=== PATIENT | female | born 1970 | race American Indian/Alaskan Native ===

== ENCOUNTER 2016-09-02 01:09 | Emergency (ER) | payer MEDICARE ==
[2016-09-02 02:47] LABS: Basophils % (Auto) 0.7 % (0.0-1.8); Eosinophils % (Auto) 0.6 % (0.0-4.3); Hematocrit 40.1 % (30.3-42.9); Hemoglobin 13.3 gm/dl (10.1-14.3); Mean Corpuscular HGB Conc 33 % (30-34); Mean Corpuscular Hemoglobin 29 pg (28-32); Mean Corpuscular Volume 86 fl (79-97); Platelet Count 338 K/mm3 (140-440); Red Blood Count 4.64 M/mm3 (3.65-5.03); Red Cell Distribution Width 13.6 % (13.2-15.2); White Blood Count 8.1 K/mm3 (4.5-11.0)
--- NOTE | 2016-09-02 03:04 | Cat Scan Report ---
FINAL REPORT PROCEDURE: CT HEAD/BRAIN WO CON TECHNIQUE: Computerized tomography of the head was performed without contrast material. HISTORY: LEFT SIDED NUMBNESS AND TINGLING X 1 HR COMPARISON: No prior studies are available for comparison. FINDINGS: Skull and scalp: Normal. Paranasal sinuses: Normal. Ventricles and subarachnoid spaces: Normal. Cerebrum: No evidence of hemorrhage, acute infarction or mass . Cerebellum and brainstem: No evidence of hemorrhage, acute infarction or mass. Vasculature: Normal. Comments: None. IMPRESSION: Normal Examination
[2016-09-02 03:09] LABS: INR 0.94 (0.87-1.13)
[2016-09-02 03:10] LABS: Partial Thromboplastin Time 27.5 Sec. (24.2-36.6)
[2016-09-02 03:19] LABS: Anion Gap 17 mmol/L; BUN/Creatinine Ratio 17.27; Blood Urea Nitrogen 19 mg/dL (7-17); Calcium 9.3 mg/dL (8.4-10.2); Carbon Dioxide 23 mmol/L (22-30); Chloride 99.8 mmol/L (98-107); Glucose 256 mg/dL (65-100); Potassium 4.4 mmol/L (3.6-5.0); Sodium 135 mmol/L (137-145)
--- NOTE | 2016-09-02 07:04 | Emergency Department Report ---
ED Neuro Deficit HPI - General Chief Complaint: Neuro Symptoms/Deficit Stated Complaint: L SIDE NUMBNESS/TINGLING Time Seen by Provider: 09/02/16 06:59 Source: patient Mode of arrival: Ambulatory Limitations: No Limitations - History of Present Illness Initial Comments: Patient complains of tingling in her entire left side since yesterday. It is mildly persistent. She has no actual numbness. She denies any change in speech or gait. She's had no headache. She states that she's had tingling in her feet before. She has not been formally diagnosed with a diabetic neuropathy. She has no other complaints. She is resting comfortably at the time of my encounter. -: Gradual History of same: No Place: home Severity: mild Quality: tingling Improves With: none Worsens With: none On Anticoagulants: No Context: other Associated Symptoms: denies other symptoms Treatments Prior to Arrival: none - Related Data Home Medications: Home Medications Medication Instructions Recorded Confirmed Last Taken Insulin Aspart [NovoLOG 100 20 unit SQ AC 01/11/14 07/26/14 Unknown UNITS/ML VIAL] Insulin Glargine,Hum.rec.anlog 36 unit SQ QHS 01/11/14 07/26/14 Unknown [Lantus] Sitagliptin Phosphate [Januvia] 25 mg PO DAILY 01/11/14 07/26/14 Unknown metFORMIN [Glucophage] 500 mg PO BID 01/11/14 07/26/14 Unknown Lisinopril 10 mg PO DAILY 07/26/14 07/26/14 Unknown Previous Rx's Medication Instructions Recorded Last Taken Type Diclofenac Dr [Voltaren Dr] 75 mg PO Q12H #60 tablet 09/25/14 Unknown Rx traMADol [Ultram 50 MG tab] 50 mg PO Q6HR PRN #30 tablet 09/25/14 Unknown Rx Allergies/Adverse Reactions: Allergies Allergy/AdvReac Type Severity Reaction Status Date / Time No Known Allergies Allergy Verified 01/11/14 21:13 ED Review of Systems ROS: Stated complaint: L SIDE NUMBNESS/TINGLING Other details as noted in HPI Constitutional: denies: chills, fever Eyes: denies: eye pain, eye discharge, vision change ENT: denies: ear pain, throat pain Respiratory: denies: cough, shortness of breath, wheezing Cardiovascular: denies: chest pain, palpitations Endocrine: no symptoms reported Gastrointestinal: denies: abdominal pain, nausea, diarrhea Genitourinary: denies: urgency, dysuria, discharge Musculoskeletal: denies: back pain, joint swelling, arthralgia Skin: denies: rash, lesions Neurological: paresthesias. denies: headache, weakness, numbness, confusion, abnormal gait, vertigo Psychiatric: denies: anxiety, depression Hematological/Lymphatic: denies: easy bleeding, easy bruising ED Past Medical Hx - Past Medical History Previous Medical History?: Yes Hx Hypertension: Yes Hx Congestive Heart Failure: No Hx Diabetes: Yes Hx Seizures: (pt denies) Hx Psychiatric Treatment: Yes (no meds) Hx Asthma: No Hx COPD: No Additional medical history: high chol - Surgical History Past Surgical History?: Yes Additional Surgical History: HYSTERECTOMY, ovarian cysts removed in the - Social History Smoking Status: Never Smoker Substance Use Type: Alcohol - Medications Home Medications: Home Medications Medication Instructions Recorded Confirmed Last Taken Type Insulin Aspart [NovoLOG 100 20 unit SQ AC 01/11/14 07/26/14 Unknown History UNITS/ML VIAL] Insulin Glargine,Hum.rec.anlog 36 unit SQ QHS 01/11/14 07/26/14 Unknown History [Lantus] Sitagliptin Phosphate [Januvia] 25 mg PO DAILY 01/11/14 07/26/14 Unknown History metFORMIN [Glucophage] 500 mg PO BID 01/11/14 07/26/14 Unknown History Lisinopril 10 mg PO DAILY 07/26/14 07/26/[address] [Voltaren Dr] 75 mg PO Q12H #60 tablet 09/25/14 Unknown Rx traMADol [Ultram 50 MG tab] 50 mg PO Q6HR PRN #30 tablet 09/25/14 Unknown Rx ED Neuro Physical Exam - General Limitations: No Limitations General appearance: alert, in no apparent distress Suspected Stroke: No - Head Head exam: Present: atraumatic, normocephalic - Eye Eye exam: Present: normal appearance. Absent: scleral icterus - ENT ENT exam: Present: normal exam, mucous membranes moist - Neck Neck exam: Present: normal inspection - Respiratory Respiratory exam: Present: normal lung sounds bilaterally. Absent: respiratory distress - Cardiovascular Cardiovascular Exam: Present: regular rate, normal rhythm. Absent: systolic murmur, diastolic murmur, rubs, gallop - GI/Abdominal GI/Abdominal exam: Present: soft, normal bowel sounds. Absent: distended, tenderness, guarding, rebound, rigid, organomegaly, mass - Extremities Exam Extremities exam: Present: normal inspection - Back Exam Back exam: Present: normal inspection - Neurological Exam Neurological exam: Present: alert, oriented X3, CN II-XII intact. Absent: motor sensory deficit - NIHSS Assessment Interval: Baseline 1a. Level of Consciousness: alert 1b. LOC Questions: answers correctly 1c. LOC Commands: performs tasks correctly 2. Best Gaze: normal 3. Visual: no visual loss 4. Facial Palsy: normal symmetrical movement 5b. Motor Arm Right: no drift 5a. Motor Arm Left: no drift 6a. Motor Leg Left: no drift 6b. Motor Leg Right: no drift 7. Limb Ataxia: absent 8. Sensory: normal 9. Best Language: no aphasia 10. Dysarthria: normal 11. Extinction/Inattention: no abnormality Total Score: 0 Stroke Severity: No Stroke Symptoms - Psychiatric Psychiatric exam: Present: normal affect, normal mood - Skin Skin exam: Present: warm, dry, intact, normal color. Absent: rash ED Course Vital Signs 09/02/16 09/02/16 09/02/16 01:56 06:11 06:20 Temperature 98.2 F Pulse Rate 94 H 94 H 97 H Respiratory 16 17 24 Rate Blood Pressure 131/82 126/86 Blood Pressure 134/85 [Right] O2 Sat by Pulse 100 97 96 Oximetry 09/02/16 09/02/16 06:30 06:40 Temperature Pulse Rate 87 92 H Respiratory 18 16 Rate Blood Pressure 119/77 119/77 Blood Pressure [Right] O2 Sat by Pulse 96 98 Oximetry - Lab Data Result diagrams: 09/02/16 02:17 09/02/16 02:17 Lab Results 09/02/16 09/02/16 09/02/16 Range/Units 02:17 02:17 02:17 WBC 8.1 (4.5-11.0) K/mm3 RBC 4.64 (3.65-5.03) M/mm3 Hgb 13.3 (10.1-14.3) gm/dl Hct 40.1 (30.3-42.9) % MCV 86 (79-97) fl MCH 29 (28-32) pg MCHC 33 (30-34) % RDW 13.6 (13.2-15.2) % Plt Count 338 (140-440) K/mm3 Lymph % (Auto) 49.8 H (13.4-35.0) % Sac % (Auto) 9.1 H (0.0-7.3) % Eos % (Auto) 0.6 (0.0-4.3) % Baso % (Auto) 0.7 (0.0-1.8) % Lymph # 4.0 (1.2-5.4) K/mm3 Sac # 0.7 (0.0-0.8) K/mm3 Eos # 0.1 (0.0-0.4) K/mm3 Baso # 0.1 (0.0-0.1) K/mm3 Seg Neutrophils % 39.8 L (40.0-70.0) % Seg Neutrophils # 3.2 (1.8-7.7) K/mm3 PT 12.5 (12.2-14.9) Sec. INR 0.94 (0.87-1.13) APTT 27.5 (24.2-36.6) Sec. Thrombin Time (15.1-19.6) Sec. Sodium 135 L (137-145) mmol/L Potassium 4.4 (3.6-5.0) mmol/L Chloride 99.8 (98-107) mmol/L Carbon Dioxide 23 (22-30) mmol/L Anion Gap 17 mmol/L BUN 19 H (7-17) mg/dL Creatinine 1.1 (0.7-1.2) mg/dL Estimated GFR > 60 ml/min BUN/Creatinine Ratio 17.27 % Glucose 256 H (65-100) mg/dL Calcium 9.3 (8.4-10.2) mg/dL Troponin T < 0.010 (0.00-0.029) ng/mL 09/02/16 Range/Units 02:17 WBC (4.5-11.0) K/mm3 RBC (3.65-5.03) M/mm3 Hgb (10.1-14.3) gm/dl Hct (30.3-42.9) % MCV (79-97) fl MCH (28-32) pg MCHC (30-34) % RDW (13.2-15.2) % Plt Count (140-440) K/mm3 Lymph % (Auto) (13.4-35.0) % Sac % (Auto) (0.0-7.3) % Eos % (Auto) (0.0-4.3) % Baso % (Auto) (0.0-1.8) % Lymph # (1.2-5.4) K/mm3 Sac # (0.0-0.8) K/mm3 Eos # (0.0-0.4) K/mm3 Baso # (0.0-0.1) K/mm3 Seg Neutrophils % (40.0-70.0) % Seg Neutrophils # (1.8-7.7) K/mm3 PT (12.2-14.9) Sec. INR (0.87-1.13) APTT (24.2-36.6) Sec. Thrombin Time 19.2 (15.1-19.6) Sec. Sodium (137-145) mmol/L Potassium (3.6-5.0) mmol/L Chloride (98-107) mmol/L Carbon Dioxide (22-30) mmol/L Anion Gap mmol/L BUN (7-17) mg/dL Creatinine (0.7-1.2) mg/dL Estimated GFR ml/min BUN/Creatinine Ratio % Glucose (65-100) mg/dL Calcium (8.4-10.2) mg/dL Troponin T (0.00-0.029) ng/mL - EKG Data -: EKG Interpreted by Me EKG shows normal: sinus rhythm, axis, intervals, QRS complexes, ST-T waves Rate: normal Interpretation: normal EKG - Radiology Data Radiology results: report reviewed interpreted by me: CT head is normal Critical care attestation.: If time is entered above; I have spent that time in minutes in the direct care of this critically ill patient, excluding procedure time. ED Disposition Clinical Impression: Paresthesias Diabetes mellitus Qualifiers: Diabetes mellitus type: type 2 Diabetes mellitus complication status: without complication Diabetes mellitus mcfp insulin use: with mcfp use Qualified Code(s): E11.9 - Type 2 diabetes mellitus without complications; Z79.4 - termite control servicer (current) use of insulin Disposition: DISCHARGED TO HOME OR SELFCARE Is pt being admited?: No Does the pt Need Aspirin: Yes Condition: Stable Instructions: Diabetes Mellitus Type 2 in Adults (ED) Additional Instructions: I would recommend a baby aspirin a day. In addition, see referral to neurologist. Return any progression of your symptoms actual numbness or weakness or any acute change. Referrals: DARRYN CARROLL MD [Primary Care Provider] - 3-5 Days SHARA PETER MD [Staff Physician] - 2-3 Days Time of Disposition: 07:38
[2016-09-02] MEDS ORDERED: BABY ASPIRIN PO ONE (07:40)
[2016-09-02 09:12] VITALS: BP 119/89
== END 2016-09-02 07:39 | disposition home or self-care (01) ==
LOC: ED 01:09
DX: R20.9 Unspecified disturbances of skin sensation (principal); E11.9 Type 2 diabetes mellitus without complications; Z79.4 Long term (current) use of insulin; I10 Essential (primary) hypertension; E78.00 Pure hypercholesterolemia, unspecified
CPT/HCPCS: 36415; 70450; 80048; 84484; 85025; 85610; 85670; 85730; 93005; 93010

== ENCOUNTER 2016-09-14 10:09 | Outpatient (CLI) | payer MEDICARE ==
--- NOTE | 2016-09-15 21:00 | Magnetic Resonance Report ---
MR scan of the cranium was performed with and without contrast. Pulse sequences included: 1. T1 weighted sagittal and axial images without contrast and T1 axial images with contrast and sagittal and coronal reformatted images with contrast 2. T2 weighted axial and coronal images 3. FLAIR axial images 4. Diffusion-weighted axial images 5. Apparent diffusion coefficient images Views of the posterior fossa showed a normal craniocervical junction. Cerebellar pontine angles were normal with normal seventh-eighth nerve complexes. Brainstem and cerebellum were normal. The ventricular system showed no dilatation or distortion. Images of the hemispheres showed occasional small areas of increased signal in the cortical white matter. There were no Cano's fingers. These lesions were punctate and not ovoid. Sinuses, pituitary, flow voids in the [place], orbits, and basal ganglia were normal. There are no abnormal areas of enhancement with contrast. 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
== END 2016-09-14 10:10 | disposition home or self-care (01) ==
LOC: SPVIMAG 10:09
PROVIDERS: ATTEND Specialist
DX: R20.2 Paresthesia of skin (principal)
CPT/HCPCS: 70553; 82962; A9577

== ENCOUNTER 2016-10-04 06:02 | Day surgery (SDC) | payer MEDICARE ==
[2016-10-04 07:54] LABS: INR 0.92 (0.87-1.13)
[2016-10-04 07:55] LABS: Partial Thromboplastin Time 25.6 Sec. (24.2-36.6)
--- NOTE | 2016-10-04 09:21 | Fluoroscopy Report ---
FLUOROSCOPY LUMBAR PUNCTURE History: Paresthesia of skin. Findings: Informed consent was obtained. Sterile technique was utilized. 1% lidocaine for skin anesthesia. Using fluoroscopy guidance, lumbar puncture was performed at the L3-4 level. There is spontaneous return of clear CSF. 4 tubes of CSF were collected for laboratory analysis. No complications. Impression: Successful fluoroscopy guided lumbar puncture.
[2016-10-04] MEDS ORDERED: NORCO 5/325 PO ONE (10:00)
[2016-10-04 10:31] LABS: Appearance,CSF Clear; White Blood Cell,CSF 0 /mm3 (1-10)
[2016-10-04 10:32] VITALS: BP 126/73
[2016-10-04 10:44] LABS: Glucose,CSF 189 mg/dL
[2016-10-04 11:41] LABS: CSF Diff Status Complete
== END 2016-10-04 10:35 | disposition home or self-care (01) ==
LOC: OPU 06:02 → EDSTATUS 06:30 → OPU 10:35
PROVIDERS: ATTEND Specialist
DX: R20.2 Paresthesia of skin (principal); Z79.01 Long term (current) use of anticoagulants
CPT/HCPCS: 36415; 62270; 77003; 82947; 82962; 83873; 83916; 84160; 85610; 85730; 86403; 86592; 88112; 89051

== ENCOUNTER 2017-08-22 21:46 | Emergency (ER) | payer MEDICARE ==
[2017-08-22 21:55] VITALS: BP 140/93
--- NOTE | 2017-08-23 01:54 | Emergency Department Report ---
- General Chief complaint: Skin/Abscess/Foreign Body Stated complaint: KNOT ON HER BACK Time Seen by Provider: 08/23/17 01:07 Source: patient Mode of arrival: Ambulatory Limitations: No Limitations - History of Present Illness Initial comments: This is a 46 y.o. female that presents with a painful mole to left mid back. Patient reports mole has been there for about 1 year. She never had any issues with it until 3 days ago. The mole is darker, larger than usual, and painful to wear bra or pressure against back. Denies erythema, discharge, fever, or numbness or tingling. MD complaint: lesion (mole or mass on left mid back) -: year(s) (1) Tetanus Up to Date: unsure Location: back (left mid back) Severity scale (0 -10): 8 Quality: aching Consistency: intermittent Improves with: immobilization Worsens with: palpation Context: none Associated symptoms: denies other symptoms Treatments Prior to Arrival: none - Related Data Home Medications Medication Instructions Recorded Confirmed Last Taken Insulin Aspart [NovoLOG 100 20 unit SQ AC 01/11/14 10/04/16 10/03/16 UNITS/ML VIAL] 20 units Insulin Glargine,Hum.rec.anlog 36 unit SQ QHS 01/11/14 10/04/16 10/03/16 [Lantus] 36 units Sitagliptin Phosphate [Januvia] 25 mg PO DAILY 01/11/14 10/04/16 10/03/16 25mg metFORMIN [Glucophage] 500 mg PO BID 01/11/14 10/04/16 10/03/16 500mg Losartan [Cozaar] 50 mg PO QDAY 10/04/16 10/04/16 10/03/16 50mg Rosuvastatin Calcium [Crestor] 10 mg PO DAILY 10/04/16 10/04/16 10/03/16 10mg Allergies Allergy/AdvReac Type Severity Reaction Status Date / Time shellfish derived Allergy Rash Verified 08/22/17 21:52 Abscess Boil HPI - HPI Chief Complaint: Skin/Abscess/Foreign Body Stated Complaint: KNOT ON HER BACK Time Seen by Provider: 08/23/17 01:07 Home Medications: Home Medications Medication Instructions Recorded Confirmed Last Taken Insulin Aspart [NovoLOG 100 20 unit SQ AC 01/11/14 10/04/16 10/03/16 UNITS/ML VIAL] 20 units Insulin Glargine,Hum.rec.anlog 36 unit SQ QHS 01/11/14 10/04/16 10/03/16 [Lantus] 36 units Sitagliptin Phosphate [Januvia] 25 mg PO DAILY 01/11/14 10/04/16 10/03/16 25mg metFORMIN [Glucophage] 500 mg PO BID 01/11/14 10/04/16 10/03/16 500mg Losartan [Cozaar] 50 mg PO QDAY 10/04/16 10/04/16 10/03/16 50mg Rosuvastatin Calcium [Crestor] 10 mg PO DAILY 10/04/16 10/04/16 10/03/16 10mg Allergies/Adverse Reactions: Allergies Allergy/AdvReac Type Severity Reaction Status Date / Time shellfish derived Allergy Rash Verified 08/22/17 21:52 ED Review of Systems ROS: Stated complaint: KNOT ON HER BACK Other details as noted in HPI Constitutional: denies: chills, fever Respiratory: denies: cough, shortness of breath, wheezing Cardiovascular: denies: chest pain, palpitations Gastrointestinal: denies: abdominal pain, nausea, diarrhea Musculoskeletal: denies: back pain, joint swelling, arthralgia Skin: lesions (painful mole on left mid back, larger than usual, and darker). denies: rash, change in hair/nails Neurological: denies: headache, weakness, numbness, paresthesias ED Past Medical Hx - Past Medical History Hx Hypertension: Yes Hx Congestive Heart Failure: No Hx Diabetes: Yes Hx Seizures: (pt denies) Hx Psychiatric Treatment: Yes (no meds) Hx Asthma: No Hx COPD: No Additional medical history: high chol - Surgical History Additional Surgical History: HYSTERECTOMY, ovarian cysts removed in the - Social History Smoking Status: Never Smoker Substance Use Type: None - Medications Home Medications: Home Medications Medication Instructions Recorded Confirmed Last Taken Type Insulin Aspart [NovoLOG 100 20 unit SQ AC 01/11/14 10/04/16 10/03/16 History UNITS/ML VIAL] 20 units Insulin Glargine,Hum.rec.anlog 36 unit SQ QHS 01/11/14 10/04/16 10/03/16 History [Lantus] 36 units Sitagliptin Phosphate [Januvia] 25 mg PO DAILY 01/11/14 10/04/16 10/03/16 History 25mg metFORMIN [Glucophage] 500 mg PO BID 01/11/14 10/04/16 10/03/16 History 500mg Losartan [Cozaar] 50 mg PO QDAY 10/04/16 10/04/16 10/03/16 History 50mg Rosuvastatin Calcium [Crestor] 10 mg PO DAILY 10/04/16 10/04/16 10/03/16 History 10mg ED Physical Exam - General Limitations: No Limitations General appearance: alert, in no apparent distress - Respiratory Respiratory exam: Present: normal lung sounds bilaterally. Absent: respiratory distress, wheezes, rales, rhonchi, stridor - Cardiovascular Cardiovascular Exam: Present: regular rate, normal rhythm, normal heart sounds. Absent: systolic murmur, diastolic murmur, rubs, gallop - GI/Abdominal GI/Abdominal exam: Present: soft, normal bowel sounds - Neurological Exam Neurological exam: Present: alert, oriented X3, normal gait - Psychiatric Psychiatric exam: Present: normal affect, normal mood - Skin Skin exam: Present: warm, dry, intact, normal color, other (left medial, mid back, 5 mm nevi, dark brown, regular boarders, tender on palpation). Absent: rash ED Course Vital Signs 08/22/17 21:53 Temperature 98.7 F Pulse Rate 100 H Respiratory 20 Rate Blood Pressure 140/93 O2 Sat by Pulse 99 Oximetry ED Medical Decision Making - Medical Decision Making 46 y.o. female that presents with painful mole to left mid back for 3 days. The mole has been there for 1 year, it is larger and darker than usual. Patient examined by me. Vitals stable. Physical findings of 6 mm nevi, dark brown, regular boarder, tender to palpation. Patient informed to f/u with dermatology for further evaluation or biopsy. Patient agreed with plan. Referred to [facility]. Discharged home. Follow up with [facility] in 48 -72 hours. Critical care attestation.: If time is entered above; I have spent that time in minutes in the direct care of this critically ill patient, excluding procedure time. ED Disposition Clinical Impression: Atypical nevi, Mid back pain on left side Disposition: - TO HOME OR SELFCARE Is pt being admited?: No Does the pt Need Aspirin: No Condition: Stable Instructions: Back Pain (ED) Additional Instructions: Follow up with dermatology for follow up of mole in 24-72 hours. [facility]erral to [facility] Referrals: [facility] [Provider Group] - 3-5 Days [facility] - 3-5 Days Time of Disposition: 02:29 Print Language: AMERICAN
== END 2017-08-23 02:31 | disposition home or self-care (01) ==
LOC: ED 21:46
DX: R51 Headache (principal); Z53.21 Procedure and treatment not carried out due to patient leaving prior to being seen by health care provider

== ENCOUNTER 2017-12-25 20:36 | Emergency (ER) | payer MEDICARE ==
[2017-12-25 20:57] VITALS: BP 139/90
[2017-12-26] MEDS ORDERED: MOTRIN PO ONE (01:01)
--- NOTE | 2017-12-26 01:17 | Emergency Department Report ---
- General Chief complaint: Skin/Abscess/Foreign Body Stated complaint: INSECT BITE Time Seen by Provider: 12/26/17 00:17 Source: patient Mode of arrival: Ambulatory Limitations: No Limitations - History of Present Illness Initial comments: 47-year-old [place] female reports that insect bite yesterday to her left big toe. Patient poor she has some swelling to the area. She denies any discharge. States that she feels pins radiating to her lower lower extremity. Feels like wearing a tight socks. Patient reports she took Benadryl yesterday. She does have a past medical history of diabetes and high cholesterol she had checked her glucose in triage was 1:30. -: days(s) (1) Tetanus Up to Date: yes Location: L foot (right toe) Severity: severe Severity scale (0 -10): 10 Quality: burning Consistency: constant Associated symptoms: denies other symptoms Treatments Prior to Arrival: Benadryl (1 dose) - Related Data Home Medications Medication Instructions Recorded Confirmed Last Taken Insulin Aspart [NovoLOG 100 20 unit SQ AC 01/11/14 10/04/16 10/03/16 UNITS/ML VIAL] 20 units Insulin Glargine,Hum.rec.anlog 36 unit SQ QHS 01/11/14 10/04/16 10/03/16 [Lantus] 36 units Sitagliptin Phosphate [Januvia] 25 mg PO DAILY 01/11/14 10/04/16 10/03/16 25mg metFORMIN [Glucophage] 500 mg PO BID 01/11/14 10/04/16 10/03/16 500mg Losartan [Cozaar] 50 mg PO QDAY 10/04/16 10/04/16 10/03/16 50mg Rosuvastatin Calcium [Crestor] 10 mg PO DAILY 10/04/16 10/04/16 10/03/16 10mg Allergies Allergy/AdvReac Type Severity Reaction Status Date / Time shellfish derived Allergy Rash Verified 08/22/17 21:52 Abscess Boil HPI - HPI Chief Complaint: Skin/Abscess/Foreign Body Stated Complaint: INSECT BITE Time Seen by Provider: 12/26/17 00:17 Home Medications: Home Medications Medication Instructions Recorded Confirmed Last Taken Insulin Aspart [NovoLOG 100 20 unit SQ AC 01/11/14 10/04/16 10/03/16 UNITS/ML VIAL] 20 units Insulin Glargine,Hum.rec.anlog 36 unit SQ QHS 01/11/14 10/04/16 10/03/16 [Lantus] 36 units Sitagliptin Phosphate [Januvia] 25 mg PO DAILY 01/11/14 10/04/16 10/03/16 25mg metFORMIN [Glucophage] 500 mg PO BID 01/11/14 10/04/16 10/03/16 500mg Losartan [Cozaar] 50 mg PO QDAY 10/04/16 10/04/16 10/03/16 50mg Rosuvastatin Calcium [Crestor] 10 mg PO DAILY 10/04/16 10/04/16 10/03/16 10mg Allergies/Adverse Reactions: Allergies Allergy/AdvReac Type Severity Reaction Status Date / Time shellfish derived Allergy Rash Verified 08/22/17 21:52 ED Review of Systems ROS: Stated complaint: INSECT BITE Other details as noted in HPI Skin: lesions ED Past Medical Hx - Past Medical History Previous Medical History?: Yes Hx Hypertension: Yes Hx Congestive Heart Failure: No Hx Diabetes: Yes Hx Seizures: (pt denies) Hx Psychiatric Treatment: Yes (no meds) Hx Asthma: No Hx COPD: No Additional medical history: high chol - Surgical History Past Surgical History?: Yes Additional Surgical History: HYSTERECTOMY, ovarian cysts removed in the s. cyst removal to back - Social History Smoking Status: Never Smoker Substance Use Type: Alcohol - Medications Home Medications: Home Medications Medication Instructions Recorded Confirmed Last Taken Type Insulin Aspart [NovoLOG 100 20 unit SQ AC 01/11/14 10/04/16 10/03/16 History UNITS/ML VIAL] 20 units Insulin Glargine,Hum.rec.anlog 36 unit SQ QHS 01/11/14 10/04/16 10/03/16 History [Lantus] 36 units Sitagliptin Phosphate [Januvia] 25 mg PO DAILY 01/11/14 10/04/16 10/03/16 History 25mg metFORMIN [Glucophage] 500 mg PO BID 01/11/14 10/04/16 10/03/16 History 500mg Losartan [Cozaar] 50 mg PO QDAY 10/04/16 10/04/16 10/03/16 History 50mg Rosuvastatin Calcium [Crestor] 10 mg PO DAILY 10/04/16 10/04/16 10/03/16 History 10mg ED Physical Exam - General Limitations: No Limitations General appearance: alert, in no apparent distress - ENT ENT exam: Present: mucous membranes moist - Neurological Exam Neurological exam: Present: alert, oriented X3, normal gait - Psychiatric Psychiatric exam: Present: normal affect, normal mood - Expanded Skin Exam Expanded Distribution of rash: LLE (left great toe proximal medical tarsal) Description of rash: Present: size (1 mm), tenderness, swelling (mild) ED Course Vital Signs 12/25/17 20:48 Temperature 98.5 F Pulse Rate 93 H Respiratory 18 Rate Blood Pressure 139/90 O2 Sat by Pulse 100 Oximetry ED Medical Decision Making - Medical Decision Making Patient has been evaluated by this provider fast track. Patient was given ibuprofen 600 mg for pain management. Discussed the patient at the swelling has improved with the Benadryl that she is taken at home per her report. Discussed the patient to take pain medication as needed. If her symptoms persist or gets worse she should follow up with her primary care provider. Critical care attestation.: If time is entered above; I have spent that time in minutes in the direct care of this critically ill patient, excluding procedure time. ED Disposition Clinical Impression: Rash and nonspecific skin eruption Disposition: DC-01 TO HOME OR SELFCARE Is pt being admited?: No Does the pt Need Aspirin: No Condition: Stable Instructions: Acute Rash (ED) Additional Instructions: Please take pain medication and Benadryl as needed for swelling and pain. If her symptoms persist or gets worse please follow up with her primary care provider. Referrals: [facility]IMARY [facility]ARE [Primary Care Provider] - 3-5 Days [facility] [Provider Group] - 3-5 Days Forms: Work/School Release Form(ED), Accompanied Note
== END 2017-12-26 01:45 | disposition home or self-care (01) ==
LOC: ED 20:36
DX: R21 Rash and other nonspecific skin eruption (principal); I10 Essential (primary) hypertension; E11.9 Type 2 diabetes mellitus without complications; E78.00 Pure hypercholesterolemia, unspecified; Z90.710 Acquired absence of both cervix and uterus; Z79.4 Long term (current) use of insulin; Z91.013 Allergy to seafood
CPT/HCPCS: 82962; 99283

== ENCOUNTER 2018-07-17 08:29 | Emergency (ER) | payer OTHER, MEDICARE ==
[2018-07-17] MEDS ORDERED: IBUPROFEN PO ONE (09:03)
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
[2018-07-17 11:15] VITALS: BP 144/98
== END 2018-07-17 11:14 | disposition home or self-care (01) ==
LOC: ED 08:29
DX: M54.2 Cervicalgia (principal); M79.601 Pain in right arm; M79.604 Pain in right leg; I10 Essential (primary) hypertension; E11.9 Type 2 diabetes mellitus without complications; E78.00 Pure hypercholesterolemia, unspecified; Z90.710 Acquired absence of both cervix and uterus; Z79.899 Other long term (current) drug therapy; Z91.013 Allergy to seafood; V89.2XXA Person injured in unspecified motor-vehicle accident, traffic, initial encounter; Y93.89 Activity, other specified; Y99.8 Other external cause status; Y92.410 Unspecified street and highway as the place of occurrence of the external cause
CPT/HCPCS: 71046; 72040; 72170; 99283

== ENCOUNTER 2018-11-26 12:47 | Emergency (ER) | payer MEDICARE, OTHER ==
--- NOTE | 2018-11-26 13:08 | Emergency Department Report ---
Blank Doc - Documentation Documentation: This is a 48-year-old female that presents with dysuria and urinary frequency with urgency. This initial assessment/diagnostic orders/clinical plan/treatment(s) is/are subject to change based on patient's health status, clinical progression and re- assessment by fellow clinical providers in the ED. Further treatment and workup at subsequent clinical providers discretion. Patient/guardians urged not to elope from the ED as their condition may be serious if not clinically assessed and managed. Initial orders include: 1- Patient sent to [facility] for further evaluation and treatment 2- UA
--- NOTE | 2018-11-26 14:57 | Emergency Department Report ---
ED Dysuria HPI - HPI Chief Complaint: Urogenital-Female Stated Complaint: UTI/STOMACH PAIN Time Seen by Provider: 11/26/18 13:07 Duration: 3 Days Location of Discomfort: Suprapubic Severity: Mild Symptoms: Dysuria: Yes, Frequency: Yes, Suprapubic Pain: No, Flank Pain: No, Fever: No, Hematuria: No, Abdominal Pain: No, Previous UTI's: Yes Other History: Patient is a 48-year-old female who comes to the ER today complaining of burning with urination. She states that her urine is dark and has a foul spell to it. Patient is diabetic and has a history of COPD. She is compliant with her medications. ED Review of Systems ROS: Stated complaint: UTI/STOMACH PAIN Other details as noted in HPI Comment: All other systems reviewed and negative ED Past Medical Hx - Past Medical History Previous Medical History?: Yes Hx Hypertension: Yes Hx Congestive Heart Failure: No Hx Diabetes: Yes Hx Seizures: (pt denies) Hx Psychiatric Treatment: Yes (no meds) Hx Asthma: No Hx COPD: No Additional medical history: high chol - Surgical History Past Surgical History?: Yes Additional Surgical History: HYSTERECTOMY, ovarian cysts removed in the . cyst removal to back - Family History Family history: no significant - Social History Smoking Status: Never Smoker Substance Use Type: None - Medications Home Medications: Home Medications Medication Instructions Recorded Confirmed Last Taken Type Insulin Aspart [NovoLOG 100 20 unit SQ AC 01/11/14 10/04/16 10/03/16 History UNITS/ML VIAL] 20 units Insulin Glargine,Hum.rec.anlog 36 unit SQ QHS 01/11/14 10/04/16 10/03/16 History [Lantus] 36 units Sitagliptin Phosphate [Januvia] 25 mg PO DAILY 01/11/14 10/04/16 10/03/16 History 25mg metFORMIN [Glucophage] 500 mg PO BID 01/11/14 10/04/16 10/03/16 History 500mg Losartan [Cozaar] 50 mg PO QDAY 10/04/16 10/04/16 10/03/16 History 50mg Rosuvastatin Calcium [Crestor] 10 mg PO DAILY 10/04/16 10/04/16 10/03/16 History 10mg Ciprofloxacin HCl [Ciprofloxacin 500 mg PO Q12HR #14 tab 11/26/18 Unknown Rx TAB] Dysuria Exam - Exam General: Vital signs noted. No distress. Alert and acting appropriately. Exam: Yes Moist Mucous Membranes, No CVA Tenderness, No Abdominal Tenderness, No Rigidity or Guarding ED Medical Decision Making - Medical Decision Making Labs 11/26/18 14:50 Urine Color Yellow Urine Turbidity Cloudy Urine pH 5.0 Ur Specific [place] 1.018 Urine Protein 100 mg/dl Urine Glucose (UA) >=500 Urine Ketones Neg Urine Blood Mod Urine Nitrite Pos Ur Reducing Substances Not Reportable Urine Bilirubin Neg Urine Ictotest Not Reportable Urine Urobilinogen < 2.0 Ur Leukocyte Esterase Lg Urine WBC (Auto) > 182.0 H Urine RBC (Auto) 42.0 U Epithel Cells (Auto) 2.0 Urine Bacteria (Auto) 2+ Urine WBC Clumps 2+ Urine Mucus Few Urine HCG, Qual Negative Pt has received normal saline IV as well as Rocephin IV. She's been medicated for pain. Patient is ambulatory, afebrile and nontoxic in appearance. She has no CVA tenderness. Patient is going to be discharged home with outpatient management. She has been instructed to follow-up with her primary care physician to ensure that she responds adequately to the antibiotics. Patient has also been instructed to monitor her blood sugar for infection may cause her blood sugars to be abnormally elevated. - Differential Diagnosis RO UTI/PYLO Critical care attestation.: If time is entered above; I have spent that time in minutes in the direct care of this critically ill patient, excluding procedure time. ED Disposition Clinical Impression: Diabetes type 1, uncontrolled, UTI (urinary tract infection) Disposition: TO HOME OR SELFCARE Is pt being admited?: No Does the pt Need Aspirin: No Condition: Stable Instructions: Urinary Tract Infection in Women (ED) Additional Instructions: DIET TOLERATED MEDS ORDERED TODAY IN ER FOLLOW INSTRUCTIONS ON THE BOTTLE FOLLOW UP PCP WITHIN 48 HOURS TO ENSURE YOU ARE GETTING BETTER ACTIVITY TOLERATED MOTRIN OR TYLENOL FOR PAIN OR FEVER RETURN TO THE ER FOR WORSENING SYMPTOMS NOT RELIEVED BY YOUR MEDICATIONS. Prescriptions: Ciprofloxacin HCl [Ciprofloxacin TAB] 500 mg PO Q12HR #14 tab Referrals: [facility] [Outside] - 3-5 Days Time of Disposition: 15:31
[2018-11-26 15:11] LABS: Bacteria,Urine 2+ /HPF (Negative); Bilirubin,Urine NEG (Negative); Blood,Urine MOD (Negative); Color,Urine Yellow (Yellow); HCG Qualitative,Urine Negative (Negative); Mucus,Urine FEW /HPF; Urobilinogen,Urine < 2.0 mg/dL (<2.0)
[2018-11-26 15:13] LABS: WBC,Urine > 182.0 /HPF (0.0-6.0)
[2018-11-26] MEDS ORDERED: XYLOCAINE 1% MPF 5 mL INFILTRATI ONE (15:25)
[2018-11-26] MEDS ORDERED: ROCEPHIN IM ONE (15:25)
[2018-11-26] MEDS ORDERED: NACL 0.9% 1000 ML 1,000 ML IV ONE (15:29)
[2018-11-26] MEDS ORDERED: ROCEPHIN/NS 1 GM/50 ML 1 GM/50 ML BAG IV ONE (15:29)
[2018-11-26] MEDS ORDERED: NORCO 7.5/325 PO ONE (16:01)
== END 2018-11-26 17:36 | disposition home or self-care (01) ==
LOC: ED 12:47
DX: E10.8 Type 1 diabetes mellitus with unspecified complications (principal); N39.0 Urinary tract infection, site not specified; I10 Essential (primary) hypertension; E78.00 Pure hypercholesterolemia, unspecified; Z90.710 Acquired absence of both cervix and uterus; Z79.899 Other long term (current) drug therapy; Z91.013 Allergy to seafood
CPT/HCPCS: 81001; 81025; 96365; 99283; J0696; J7030

== ENCOUNTER 2019-05-03 04:53 | Emergency (ER) | payer SELFPAY ==
[2019-05-03 05:00] VITALS: BP 150/103
[2019-05-03] MEDS ORDERED: methylPREDNISolone Sod Succinate 125 MG/2 ML INJ IM ONE (05:14)
[2019-05-03] MEDS ORDERED: IPRATROPIUM/ALBUTEROL SULFATE 3 ML AMPUL.NEB IH ONE (05:14)
--- NOTE | 2019-05-03 05:40 | XRay Report ---
CHEST 1 VIEW INDICATION / CLINICAL INFORMATION: COugh. COMPARISON: 07/17/2018 FINDINGS: SUPPORT DEVICES: None. HEART / MEDIASTINUM: No significant abnormality. LUNGS / PLEURA: No significant pulmonary or pleural abnormality. No pneumothorax. ADDITIONAL FINDINGS: No significant additional findings. IMPRESSION: 1. No acute findings. No interval change. Signer Name: Rosetta Montoya MD Signed: 05/03/2019 5:35 AM Workstation Name: [id number]
[2019-05-03] MEDS ORDERED: ONDANSETRON 4 MG ODT TAB PO ONE (05:48)
--- NOTE | 2019-05-03 05:48 | Emergency Department Report ---
- General Chief Complaint: Upper Respiratory Infection Stated Complaint: COLD SYM Source: patient Mode of arrival: Ambulatory Limitations: No Limitations - History of Present Illness Initial Comments: The patient is a 48-year-old -[place]ym[place] female with a history of hypertension and hfj-mmrrszt-ectpzbwja diabetes who presents to the ED recombinant of acute onset persistent nasal and sinus congestion, frontal sinus pressure, dry cough and intermittent wheezing for the last 2 weeks worse in the last 4 days despite taking invn-rvc-ajnnedi cough suppressants and decongestants. Patient denies fever, chills, nausea, vomiting, chest pain, sore throat, abdominal pain, shortness of breath, dizziness, dysuria, urinary frequency and urgency of back pain. MD Complaint: cough, rhinorrhea, nasal congestion, sinus pain -: Sudden, week(s) (2) Severity: severe Severity scale (0 -10): 7 Quality: sharp, aching Consistency: intermittent Improves With: nothing Worsens With: nothing Context: sick contacts Associated Symptoms: denies other symptoms, myalgias, headache, rhinorrhea, nasal congestion, sore throat, cough. denies: fever, chills, diaphoresis, chest pain, shortness of breath, abdominal pain, nausea, vomiting, diarrhea, dysuria, rash, confusion, right sweats, weight loss, epistaxis, hoarseness Treatments Prior to Arrival: "cold medicine" - Related Data Home Medications Medication Instructions Recorded Confirmed Last Taken Insulin Aspart (Nf) [NovoLOG 100 20 unit SQ AC 01/11/14 10/04/16 10/03/16 UNITS/ML VIAL] 20 units Insulin Glargine,Hum.rec.anlog 36 unit SQ QHS 01/11/14 10/04/16 10/03/16 [Lantus] 36 units Sitagliptin Phosphate [Januvia] 25 mg PO DAILY 01/11/14 10/04/16 10/03/16 25 mg metFORMIN [Glucophage] 500 mg PO BID 01/11/14 10/04/16 10/03/16 500 mg Losartan [Cozaar] 50 mg PO QDAY 10/04/16 10/04/16 10/03/16 50 mg Rosuvastatin Calcium [Crestor] 10 mg PO DAILY 10/04/16 10/04/16 10/03/16 10 mg Previous Rx's Medication Instructions Recorded Last Taken Type Ciprofloxacin HCl [Ciprofloxacin 500 mg PO Q12HR #14 tab 11/26/18 Unknown Rx TAB] Amoxicillin/Potassium Clav 1 each PO Q12H #20 tablet 05/03/19 Unknown Rx [Augmentin 875-125 Tablet] Benzonatate [Tessalon Perles] 100 mg PO Q8HR #30 capsule 05/03/19 Unknown Rx Cetirizine HCl [Zyrtec 10mg tab] 10 mg PO DAILY #30 tablet 05/03/19 Unknown Rx Ibuprofen [Motrin] 400 mg PO Q8H PRN #20 tablet 05/03/19 Unknown Rx Ondansetron [Zofran Odt] 4 mg PO Q6HR PRN #15 tab.rapdis 05/03/19 Unknown Rx methylPREDNISolone [Medrol 4MG 4 mg PO DAILY #21 tab.ds.pk 05/03/19 Unknown Rx DOSEPAK (21 tabs)] Allergies Allergy/AdvReac Type Severity Reaction Status Date / Time shellfish derived Allergy Rash Verified 07/17/18 08:33 ED Review of Systems ROS: Stated complaint: COLD SYM Other details as noted in HPI Constitutional: denies: chills, fever Eyes: denies: eye pain, eye discharge, vision change ENT: congestion, other (frontal headache). denies: ear pain, throat pain Respiratory: cough, wheezing. denies: shortness of breath Cardiovascular: denies: chest pain, palpitations Endocrine: no symptoms reported Gastrointestinal: denies: abdominal pain, nausea, diarrhea Genitourinary: denies: urgency, dysuria, discharge Musculoskeletal: denies: back pain, joint swelling, arthralgia Skin: denies: rash, lesions Neurological: headache. denies: weakness, paresthesias Psychiatric: denies: anxiety, depression Hematological/Lymphatic: denies: easy bleeding, easy bruising ED Past Medical Hx - Past Medical History Previous Medical History?: Yes Hx Hypertension: Yes Hx Congestive Heart Failure: No Hx Diabetes: Yes Hx Seizures: (pt denies) Hx Psychiatric Treatment: Yes (no meds) Hx Asthma: No Hx COPD: No Additional medical history: high chol - Surgical History Past Surgical History?: Yes Additional Surgical History: HYSTERECTOMY, ovarian cysts removed in the 90s. cyst removal to back - Social History Smoking Status: Never Smoker Substance Use Type: None - Medications Home Medications: Home Medications Medication Instructions Recorded Confirmed Last Taken Type Insulin Aspart (Nf) [NovoLOG 100 20 unit SQ AC 01/11/14 10/04/16 10/03/16 History UNITS/ML VIAL] 20 units Insulin Glargine,Hum.rec.anlog 36 unit SQ QHS 01/11/14 10/04/16 10/03/16 History [Lantus] 36 units Sitagliptin Phosphate [Januvia] 25 mg PO DAILY 01/11/14 10/04/16 10/03/16 History 25 mg metFORMIN [Glucophage] 500 mg PO BID 01/11/14 10/04/16 10/03/16 History 500 mg Losartan [Cozaar] 50 mg PO QDAY 10/04/16 10/04/16 10/03/16 History 50 mg Rosuvastatin Calcium [Crestor] 10 mg PO DAILY 10/04/16 10/04/16 10/03/16 History 10 mg Ciprofloxacin HCl [Ciprofloxacin 500 mg PO Q12HR #14 tab 11/26/18 Unknown Rx TAB] Amoxicillin/Potassium Clav 1 each PO Q12H #20 tablet 05/03/19 Unknown Rx [Augmentin 875-125 Tablet] Benzonatate [Tessalon Perles] 100 mg PO Q8HR #30 capsule 05/03/19 Unknown Rx Cetirizine HCl [Zyrtec 10mg tab] 10 mg PO DAILY #30 tablet 05/03/19 Unknown Rx Ibuprofen [Motrin] 400 mg PO Q8H PRN #20 tablet 05/03/19 Unknown Rx Ondansetron [Zofran Odt] 4 mg PO Q6HR PRN #15 tab.rapdis 05/03/19 Unknown Rx methylPREDNISolone [Medrol 4MG 4 mg PO DAILY #21 tab.ds.pk 05/03/19 Unknown Rx DOSEPAK (21 tabs)] ED Physical Exam - General Limitations: No Limitations General appearance: alert, in no apparent distress - Head Head exam: Present: atraumatic, normocephalic, normal inspection - Eye Eye exam: Present: normal appearance, PERRL, EOMI Pupils: Present: normal accommodation - ENT ENT exam: Present: normal orophraynx, mucous membranes moist, other (grossly congested nasal passages; palpable frontal sinus tenderness) - Neck Neck exam: Present: normal inspection, full ROM. Absent: tenderness, lymphadenopathy - Respiratory Respiratory exam: Present: wheezes (mildly diffuse coarse wheezes throughout). Absent: respiratory distress, rales, rhonchi, chest wall tenderness, accessory muscle use, decreased breath sounds - Cardiovascular Cardiovascular Exam: Present: normal rhythm, tachycardia, normal heart sounds. Absent: systolic murmur, diastolic murmur, rubs, gallop - GI/Abdominal GI/Abdominal exam: Present: soft, normal bowel sounds. Absent: tenderness, guarding, hyperactive bowel sounds - Extremities Exam Extremities exam: Present: normal inspection, full ROM, normal capillary refill - Back Exam Back exam: Present: normal inspection, full ROM. Absent: muscle spasm, paraspinal tenderness - Neurological Exam Neurological exam: Present: alert, oriented X3, CN II-XII intact, normal gait, reflexes normal - Psychiatric Psychiatric exam: Present: normal affect, normal mood - Skin Skin exam: Present: warm, dry, intact, normal color. Absent: rash ED Course Vital Signs 05/03/19 05/03/19 04:58 05:54 Temperature 98.4 F Pulse Rate 111 H Pulse Rate [ 80 Bilateral] Respiratory 18 Rate Respiratory 22 Rate [Bilateral ] Blood Pressure 150/103 O2 Sat by Pulse 100 Oximetry ED Medical Decision Making - Radiology Data Radiology results: report reviewed, image reviewed Chest x-ray shows no acute cardiopulmonary abnormalities or pneumonitis. - Medical Decision Making This is a 48-year-old female who presented to the ED with nasal and sinus congestion with frontal sinus pressure and headache and dry cough with intermittent wheezing for the last 2 weeks worse in the last 4 days. In the ED, patient is alert and oriented 3 and is not in distress but tachycardic and afebrile in triage. Patient was treated in the ED with DuoNeb and Solu-Medrol. Chest x-ray shows no acute cardiopulmonary abnormalities or pneumonitis. On reevaluation, patient's wheezing resolved and patient was discharged home on medications and was advised to follow-up with her primary care physician in 7-10 days for reevaluation or return to the ED immediately if symptoms get worse. - Differential Diagnosis acute sinusitis; Acute URI; Acute Bronchitis; Pneumonia Critical care attestation.: If time is entered above; I have spent that time in minutes in the direct care of this critically ill patient, excluding procedure time. ED Disposition Clinical Impression: Acute upper respiratory infection Acute frontal sinusitis Qualifiers: Recurrence: non-recurrent Qualified Code(s): J01.10 - Acute frontal sinusitis, unspecified Acute bronchitis Qualifiers: Bronchitis organism: other organism Qualified Code(s): J20.8 - Acute bronchitis due to other specified organisms Disposition: TO HOME OR SELFCARE Is pt being admited?: No Does the pt Need Aspirin: No Condition: Stable Instructions: Upper Respiratory Infection (ED), Acute Bronchitis (ED), Acute Bacterial Rhinosinusitis (ED) Additional Instructions: Take medications with food, drink plenty of fluids and follow-up with your primary care physician in 7-10 days for reevaluation. Return to the ED immediately if symptoms get worse. Prescriptions: Amoxicillin/Potassium Clav [Augmentin 875-125 Tablet] 1 each PO Q12H #20 tablet methylPREDNISolone [Medrol 4MG DOSEPAK (21 tabs)] 4 mg PO DAILY #21 tab.ds.pk Ibuprofen [Motrin] 400 mg PO Q8H PRN #20 tablet PRN Reason: Pain , Severe (7-10) Benzonatate [Tessalon Perles] 100 mg PO Q8HR #30 capsule Ondansetron [Zofran Odt] 4 mg PO Q6HR PRN #15 tab.rapdis PRN Reason: Nausea Cetirizine HCl [Zyrtec 10mg tab] 10 mg PO DAILY #30 tablet Referrals: PRIMARY CARE, [Primary Care Provider] - 3-5 Days Forms: Work/School Release Form(ED) Time of Disposition: 05:45 Print Language: PASHTO
[2019-05-03] MEDS ORDERED: ONDANSETRON 4 MG ODT TAB ONE (05:52)
== END 2019-05-03 05:50 | disposition home or self-care (01) ==
LOC: ED 04:53
DX: J06.9 Acute upper respiratory infection, unspecified (principal); J01.10 Acute frontal sinusitis, unspecified; J20.8 Acute bronchitis due to other specified organisms; I10 Essential (primary) hypertension; E11.9 Type 2 diabetes mellitus without complications; Z79.4 Long term (current) use of insulin; Z79.899 Other long term (current) drug therapy; Z79.84 Long term (current) use of oral hypoglycemic drugs; Z91.013 Allergy to seafood; Z90.710 Acquired absence of both cervix and uterus
CPT/HCPCS: 71046; 94640; 96372; 99284; J2930; 71045; 94644; Q0162

== ENCOUNTER 2019-05-07 03:04 | Emergency (ER) | payer SELFPAY ==
[2019-05-07] MEDS ORDERED: dexAMETHasone 4 MG/ML VIAL IM ONE (04:13)
[2019-05-07] MEDS ORDERED: LIDOCAINE-MPF (1%) 10 MG/1 ML VIAL 5 ML INFILTRATI ONE (04:13)
[2019-05-07] MEDS ORDERED: IPRATROPIUM/ALBUTEROL SULFATE 3 ML AMPUL.NEB IH ONE (04:13)
--- NOTE | 2019-05-07 04:14 | XRay Report ---
CHEST 2 VIEWS INDICATION: productive cough. COMPARISON: 05/03/2019. FINDINGS: Support devices: None. Heart: Within normal limits. Lungs/Pleura: No acute air space or interstitial disease. No significant pleural effusion. IMPRESSION: No acute findings. Signer Name: Cristopher Nuñez MD Signed: 05/07/2019 4:09 AM Workstation Name: [id number]
[2019-05-07 04:24] LABS: Hematocrit 39.6 % (30.3-42.9); Mean Corpuscular HGB Conc 33 % (30-34); Mean Corpuscular Volume 86 fl (79-97); Platelet Count 368 K/mm3 (140-440); Red Blood Count 4.59 M/mm3 (3.65-5.03); Red Cell Distribution Width 13.3 % (13.2-15.2)
[2019-05-07 04:54] LABS: Calcium 10.2 mg/dL (8.4-10.2)
[2019-05-07] MEDS ORDERED: SODIUM CHLORIDE 0.9% 1000 ML 1,000 ML IV ONE (04:55)
[2019-05-07] MEDS ORDERED: POTASSIUM CHLORIDE ER 20 MEQ TAB PO ONE (04:55)
--- NOTE | 2019-05-07 05:16 | Emergency Department Report ---
- General Chief Complaint: Upper Respiratory Infection Stated Complaint: COUGH CONGESTION Time Seen by Provider: 05/07/19 03:32 Source: patient Mode of arrival: Ambulatory Limitations: No Limitations - History of Present Illness Initial Comments: Patient is a 48-year-old female presents emergency room with complaints of URI symptoms for 2 weeks. She states she has had associated productive cough and congestion. She states that she has yellow sputum. She states she has rhino rrhea and shortness of breath. She denies any fever or chills. Patient was evaluated in the emergency department couple of days ago and diagnosed with sinusitis and bronchitis and given prescription for Augmentin, Tessalon Perles, Zyrtec, Zofran, Medrol Dosepak. Patient states that she is still having symptoms. She has a past medical history of DM, CKD. She denies any allergies medications. - Related Data Home Medications Medication Instructions Recorded Confirmed Last Taken Insulin Aspart (Nf) [NovoLOG 100 20 unit SQ AC 01/11/14 10/04/16 10/03/16 UNITS/ML VIAL] 20 units Insulin Glargine,Hum.rec.anlog 36 unit SQ QHS 01/11/14 10/04/16 10/03/16 [Lantus] 36 units Sitagliptin Phosphate [Januvia] 25 mg PO DAILY 01/11/14 10/04/16 10/03/16 25 mg metFORMIN [Glucophage] 500 mg PO BID 01/11/14 10/04/16 10/03/16 500 mg Losartan [Cozaar] 50 mg PO QDAY 10/04/16 10/04/16 10/03/16 50 mg Rosuvastatin Calcium [Crestor] 10 mg PO DAILY 10/04/16 10/04/16 10/03/16 10 mg Previous Rx's Medication Instructions Recorded Last Taken Type Ciprofloxacin HCl [Ciprofloxacin 500 mg PO Q12HR #14 tab 11/26/18 Unknown Rx TAB] Amoxicillin/Potassium Clav 1 each PO Q12H #20 tablet 05/03/19 Unknown Rx [Augmentin 875-125 Tablet] Benzonatate [Tessalon Perles] 100 mg PO Q8HR #30 capsule 05/03/19 Unknown Rx Cetirizine HCl [Zyrtec 10mg tab] 10 mg PO DAILY #30 tablet 05/03/19 Unknown Rx Ibuprofen [Motrin] 400 mg PO Q8H PRN #20 tablet 05/03/19 Unknown Rx Ondansetron [Zofran Odt] 4 mg PO Q6HR PRN #15 tab.rapdis 05/03/19 Unknown Rx methylPREDNISolone [Medrol 4MG 4 mg PO DAILY #21 tab.ds.pk 05/03/19 Unknown Rx DOSEPAK (21 tabs)] ALBUTEROL Inhaler (OR & NICU) 2 puff IH QID PRN #8.5 gram 05/07/19 Unknown Rx [ProAir HFA Inhaler] guaiFENesin ER [Mucinex ER] 600 mg PO Q12H #14 tablet.er 05/07/19 Unknown Rx Allergies Allergy/AdvReac Type Severity Reaction Status Date / Time shellfish derived Allergy Rash Verified 07/17/18 08:33 ED Review of Systems ROS: Stated complaint: COUGH CONGESTION Other details as noted in HPI Comment: All other systems reviewed and negative ED Past Medical Hx - Past Medical History Previous Medical History?: Yes Hx Hypertension: Yes Hx Congestive Heart Failure: No Hx Diabetes: Yes Hx Seizures: (pt denies) Hx Psychiatric Treatment: Yes (no meds) Hx Asthma: No Hx COPD: No Additional medical history: high chol - Surgical History Past Surgical History?: Yes Additional Surgical History: HYSTERECTOMY, ovarian cysts removed in the s. cyst removal to back - Social History Smoking Status: Never Smoker Substance Use Type: None - Medications Home Medications: Home Medications Medication Instructions Recorded Confirmed Last Taken Type Insulin Aspart (Nf) [NovoLOG 100 20 unit SQ AC 01/11/14 10/04/16 10/03/16 History UNITS/ML VIAL] 20 units Insulin Glargine,Hum.rec.anlog 36 unit SQ QHS 01/11/14 10/04/16 10/03/16 History [Lantus] 36 units Sitagliptin Phosphate [Januvia] 25 mg PO DAILY 01/11/14 10/04/16 10/03/16 History 25 mg metFORMIN [Glucophage] 500 mg PO BID 01/11/14 10/04/16 10/03/16 History 500 mg Losartan [Cozaar] 50 mg PO QDAY 10/04/16 10/04/16 10/03/16 History 50 mg Rosuvastatin Calcium [Crestor] 10 mg PO DAILY 10/04/16 10/04/16 10/03/16 History 10 mg Ciprofloxacin HCl [Ciprofloxacin 500 mg PO Q12HR #14 tab 11/26/18 Unknown Rx TAB] Amoxicillin/Potassium Clav 1 each PO Q12H #20 tablet 05/03/19 Unknown Rx [Augmentin 875-125 Tablet] Benzonatate [Tessalon Perles] 100 mg PO Q8HR #30 capsule 05/03/19 Unknown Rx Cetirizine HCl [Zyrtec 10mg tab] 10 mg PO DAILY #30 tablet 05/03/19 Unknown Rx Ibuprofen [Motrin] 400 mg PO Q8H PRN #20 tablet 05/03/19 Unknown Rx Ondansetron [Zofran Odt] 4 mg PO Q6HR PRN #15 tab.rapdis 05/03/19 Unknown Rx methylPREDNISolone [Medrol 4MG 4 mg PO DAILY #21 tab.ds.pk 05/03/19 Unknown Rx DOSEPAK (21 tabs)] ALBUTEROL Inhaler (OR & NICU) 2 puff IH QID PRN #8.5 gram 05/07/19 Unknown Rx [ProAir HFA Inhaler] guaiFENesin ER [Mucinex ER] 600 mg PO Q12H #14 tablet.er 05/07/19 Unknown Rx ED Physical Exam - General Limitations: No Limitations General appearance: alert, in no apparent distress - Head Head exam: Present: atraumatic, normocephalic - Eye Eye exam: Present: normal appearance - ENT ENT exam: Present: mucous membranes moist - Respiratory Respiratory exam: Present: rhonchi (mild rhonchi bilaterally which clears upon coughing). Absent: respiratory distress, wheezes, rales, stridor, chest wall tenderness, accessory muscle use, decreased breath sounds, prolonged expiratory - Cardiovascular Cardiovascular Exam: Present: regular rate, normal rhythm, normal heart sounds. Absent: systolic murmur, diastolic murmur, rubs, gallop - Neurological Exam Neurological exam: Present: alert, oriented X3 - Psychiatric Psychiatric exam: Present: normal affect, normal mood - Skin Skin exam: Present: warm, dry, intact ED Course Vital Signs 05/07/19 05/07/19 05/07/19 03:08 04:06 04:22 Temperature 98.2 F Pulse Rate 106 H Pulse Rate [ 110 H Posterior Bilateral Throughout] Respiratory 18 18 Rate Respiratory 20 Rate [Posterior Bilateral Throughout] Blood Pressure 155/103 Blood Pressure [Right] O2 Sat by Pulse 98 Oximetry 05/07/19 05/07/19 05:24 06:19 Temperature Pulse Rate 97 H 87 Pulse Rate [ Posterior Bilateral Throughout] Respiratory 16 17 Rate Respiratory Rate [Posterior Bilateral Throughout] Blood Pressure Blood Pressure 134/74 [Right] O2 Sat by Pulse 100 100 Oximetry ED Medical Decision Making - Lab Data Result diagrams: 05/07/19 03:29 05/07/19 03:29 Lab Results 05/07/19 05/07/19 Range/Units 03:29 03:29 WBC 12.9 H (4.5-11.0) K/mm3 RBC 4.59 (3.65-5.03) M/mm3 Hgb 13.0 (10.1-14.3) gm/dl Hct 39.6 (30.3-42.9) % MCV 86 (79-97) fl MCH 28 (28-32) pg MCHC 33 (30-34) % RDW 13.3 (13.2-15.2) % Plt Count 368 (140-440) K/mm3 Lymph % (Auto) [employer] [place] % (Auto) [employer] Eos % (Auto) [employer] Baso % (Auto) [employer] Lymph # [employer] [place] # [employer] Eos # [employer] Baso # [employer] Add Manual Diff Complete Total Counted 100 Seg Neutrophils % [employer] Seg Neuts % (Manual) 39.0 L (40.0-70.0) % Band Neutrophils % 0 % Lymphocytes % (Manual) 53.0 H (13.4-35.0) % Reactive Lymphs % (Man) 0 % Monocytes % (Manual) 8.0 H (0.0-7.3) % Eosinophils % (Manual) 0 (0.0-4.3) % Basophils % (Manual) 0 (0.0-1.8) % Metamyelocytes % 0 % Myelocytes % 0 % Promyelocytes % 0 % Blast Cells % 0 % Nucleated RBC % Not Reportable Seg Neutrophils # [employer] Seg Neutrophils # Man 5.0 (1.8-7.7) K/mm3 Band Neutrophils # 0.0 K/mm3 Lymphocytes # (Manual) 6.8 H (1.2-5.4) K/mm3 Abs React Lymphs (Man) 0.0 K/mm3 Monocytes # (Manual) 1.0 H (0.0-0.8) K/mm3 Eosinophils # (Manual) 0.0 (0.0-0.4) K/mm3 Basophils # (Manual) 0.0 (0.0-0.1) K/mm3 Metamyelocytes # 0.0 K/mm3 Myelocytes # 0.0 K/mm3 Promyelocytes # 0.0 K/mm3 Blast Cells # 0.0 K/mm3 WBC Morphology Not Reportable Hypersegmented Neuts Not Reportable Hyposegmented Neuts Not Reportable Hypogranular Neuts Not Reportable Smudge Cells Not Reportable Toxic Granulation Not Reportable Toxic Vacuolation Not Reportable Dohle Bodies Not Reportable Pelger-Huet Anomaly Not Reportable Kayleen Rods Not Reportable Platelet Estimate Consistent w auto Clumped Platelets Not Reportable Plt Clumps, EDTA Not Reportable Large Platelets Not Reportable Giant Platelets Not Reportable Platelet Satelliting Not Reportable Plt Morphology Comment Not Reportable RBC Morphology Not Reportable Dimorphic RBCs Not Reportable Polychromasia Not Reportable Hypochromasia Not Reportable Poikilocytosis Not Reportable Anisocytosis Not Reportable Microcytosis Not Reportable Macrocytosis Not Reportable Spherocytes Not Reportable Pappenheimer Bodies Not Reportable Sickle Cells Not Reportable Target Cells Not Reportable Tear Drop Cells Not Reportable Ovalocytes Not Reportable Helmet Cells Not Reportable [place] Bodies Not Reportable [place] Rings Not Reportable Mccormick Cells Not Reportable Bite Cells Not Reportable Crenated Cell Not Reportable Elliptocytes Not Reportable Acanthocytes (Spur) Not Reportable Rouleaux Not Reportable Hemoglobin C Crystals Not Reportable Schistocytes Not Reportable Malaria parasites Not Reportable Matt Bodies Not Reportable Hem Pathologist Commnt No Sodium 138 (137-145) mmol/L Potassium 3.3 L (3.6-5.0) mmol/L Chloride 96.5 L (98-107) mmol/L Carbon Dioxide 24 (22-30) mmol/L Anion Gap 21 mmol/L BUN 41 H (7-17) mg/dL Creatinine 2.1 H (0.7-1.2) mg/dL Estimated GFR 31 ml/min BUN/Creatinine Ratio 20 % Glucose 70 (65-100) mg/dL Calcium 10.2 (8.4-10.2) mg/dL - Radiology Data Radiology results: report reviewed CHEST 2 VIEWS INDICATION: productive cough. COMPARISON: 05/03/2019. FINDINGS: Support devices: None. Heart: Within normal limits. Lungs/Pleura: No acute air space or interstitial disease. No significant pleural effusion. IMPRESSION: No acute findings. Signer Name: Cristopher Nuñez MD Signed: 05/07/2019 4:09 AM Workstation Name: [id number] Transcribed By: ES Dictated By: Cristopher Nuñez MD Electronically Authenticated By: Cristopher Nuñez MD Signed Date/Time: 05/07/19408 DD/ 8 TD/TT: - Medical Decision Making Patient is a 48-year-old female presents emergency room with complaints of URI symptoms for 2 weeks. She states she has had associated productive cough and congestion. She states that she has yellow sputum. She states she has rhinorrhea and shortness of breath. She denies any fever or chills. Patient was evaluated in the emergency department couple of days ago and diagnosed with sinusitis and bronchitis and given prescription for Augmentin, Tessalon Perles, Zyrtec, Zofran, Medrol Dosepak. Patient states that she is still having symptoms. She has a past medical history of DM, CKD. She denies any allergies medications. Initial vitals with mild tachycardia and mild hypertension which improved upon repeat. On exam mild rhonchi bilaterally which clears upon coughing, no respiratory distress, no wheezing, no rales, no stridor. Labs with mildly elevated white count, hypokalemia at 3.3, and evidence of CKD. It appears patient creatinine has been elevated in the past. Patient states that she has known CKD and her primary care doctor is following it and she also goes to the diabetic clinic. CXR: No acute findings. Patient given IV fluids, steroids, K-Dur, ceftriaxone. Patient states that she is not a smoker but she is around a smoker. Discussed the risk associated with secondhand smoke and that could be the trigger for her bronchitis. Discussed supportive care with patient. Patient given prescription for Mucinex and albuterol inhaler. advised pt to Please use medication as prescribed. Please increase your fluid intake over the next several days. Please continue to take medications that you are already prescribed. Follow-up with a primary care doctor in the next 3 days for reexamination. Return to the emergency room for any new or worsening symptoms. - Differential Diagnosis PNA, URI, bronchitis, viral syndrome Critical care attestation.: If time is entered above; I have spent that time in minutes in the direct care of this critically ill patient, excluding procedure time. ED Disposition Clinical Impression: Hypokalemia Acute bronchitis Qualifiers: Bronchitis organism: unspecified organism Qualified Code(s): J20.9 - Acute bronchitis, unspecified CKD (chronic kidney disease) Qualifiers: Chronic kidney disease stage: unspecified stage Qualified Code(s): N18.9 - Chronic kidney disease, unspecified Disposition: TO HOME OR SELFCARE Is pt being admited?: No Does the pt Need Aspirin: No Condition: Stable Instructions: Acute Bronchitis (ED) Additional Instructions: Please use medication as prescribed. Please increase your fluid intake over the next several days. Please continue to take medications that you are already prescribed. Follow-up with a primary care doctor in the next 3 days for reexamination. Return to the emergency room for any new or worsening symptoms. Prescriptions: guaiFENesin ER [Mucinex ER] 600 mg PO Q12H #14 tablet.er ALBUTEROL Inhaler (OR & NICU) [ProAir HFA Inhaler] 2 puff IH QID PRN #8.5 gram PRN Reason: Shortness Of Breath Referrals: CAROLIN LOPEZ MD [Primary Care Provider] - 2-3 Days Time of Disposition: 05:54 Print Language: GUATEMALAN
[2019-05-07 05:25] VITALS: BP 134/74
[2019-05-07 05:50] LABS: Basophils % (Manual) 0 % (0.0-1.8); Eosinophils % (Manual) 0 % (0.0-4.3); Total Cells Counted 100
[2019-05-07 05:53] LABS: Platelet Estimate Consistent w Auto
== END 2019-05-07 06:19 | disposition home or self-care (01) ==
LOC: ED 03:04
DX: J20.9 Acute bronchitis, unspecified (principal); E87.6 Hypokalemia; I12.9 Hypertensive chronic kidney disease with stage 1 through stage 4 chronic kidney disease, or unspecified chronic kidney disease; N18.9 Chronic kidney disease, unspecified; E11.22 Type 2 diabetes mellitus with diabetic chronic kidney disease; E78.00 Pure hypercholesterolemia, unspecified; Z90.710 Acquired absence of both cervix and uterus; Z79.899 Other long term (current) drug therapy; Z79.1 Long term (current) use of non-steroidal anti-inflammatories (NSAID); Z79.84 Long term (current) use of oral hypoglycemic drugs; Z91.013 Allergy to seafood; Z79.4 Long term (current) use of insulin
CPT/HCPCS: 36415; 71046; 80048; 85007; 85025; 94640; 96372; 99284; J0696; J1100; J7030; 94644

== ENCOUNTER 2020-07-06 07:57 | Emergency (ER) | payer MEDICARE ==
[2020-07-06 08:07] VITALS: BP 142/95
--- NOTE | 2020-07-06 08:08 | Event Note ---
ED Screening Note Date of service: 07/06/20 Time: 08:07 ED Screening Note: 49-year-old -[place] female presents with complaints of lower/right lower abdominal pain times a few days. History of diabetes Admits to urinary frequency and odor to urine This initial assessment/diagnostic orders/clinical plan/treatment(s) is/are subject to change based on patients health status, clinical progression and re- assessment by fellow clinical providers in the ED. Further treatment and workup at subsequent clinical providers discretion. Patient/guardian urged not to elope from the ED as their condition may be serious if not clinically assessed and managed. Initial orders include: Labs CT abdomen
[2020-07-06 08:37] LABS: Bacteria,Urine 1+ /HPF (Negative); Bilirubin,Urine NEG (Negative); Blood,Urine NEG (Negative); Color,Urine Yellow (Yellow); Urobilinogen,Urine < 2.0 mg/dL (<2.0)
[2020-07-06 10:47] LABS: Basophils # (Auto) 0.1 K/mm3 (0.0-0.1); Basophils % (Auto) 0.9 % (0.0-1.8); Eosinophils # (Auto) 0.1 K/mm3 (0.0-0.4); Eosinophils % (Auto) 1.2 % (0.0-4.3); Hematocrit 36.1 % (30.3-42.9); Hemoglobin 11.8 gm/dl (10.1-14.3); Lymphocytes # (Auto) 2.4 K/mm3 (1.2-5.4); Lymphocytes % (Auto) 34.5 % (13.4-35.0); Mean Corpuscular HGB Conc 33 % (30-34); Mean Corpuscular Volume 87 fl (79-97); Monocytes # (Auto) 0.5 K/mm3 (0.0-0.8); Monocytes % (Auto) 7.1 % (0.0-7.3); Platelet Count 376 K/mm3 (140-440); Red Blood Count 4.16 M/mm3 (3.65-5.03); Red Cell Distribution Width 14.1 % (13.2-15.2)
[2020-07-06 11:02] LABS: Albumin 4.2 g/dL (3.9-5); Calcium 9.8 mg/dL (8.4-10.2)
[2020-07-06] MEDS ORDERED: LIDOCAINE-MPF (1%) 10 MG/1 ML VIAL 5 ML INFILTRATI ONE (11:02)
--- NOTE | 2020-07-06 11:03 | Emergency Department Report ---
ED General Adult HPI - General Chief complaint: Abdominal Pain Stated complaint: KIDNEY PAIN Time Seen by Provider: 07/06/20 08:06 Source: patient Mode of arrival: Ambulatory Limitations: No Limitations - History of Present Illness Initial comments: Patient is a 49-year-old female presents emergency room with complaints of urinary symptoms that began approximately 2 weeks ago. She states her symptoms worsened yesterday. She has associated urinary frequency, odor to her urine, urinary urgency, suprapubic pressure, low back pain. She denies any nausea, vomiting, diarrhea, fever, abnormal vaginal discharge, itching or burning. She has a past medical history of diabetes. No allergies to medications. - Related Data Home Medications Medication Instructions Recorded Confirmed Last Taken Insulin Aspart (Nf) [NovoLOG 100 20 unit SQ AC 01/11/14 10/04/16 10/03/16 UNITS/ML VIAL] 20 units Insulin Glargine,Hum.rec.anlog 36 unit SQ QHS 01/11/14 10/04/16 10/03/16 [Lantus] 36 units Sitagliptin Phosphate [Januvia] 25 mg PO DAILY 01/11/14 10/04/16 10/03/16 25 mg metFORMIN [Glucophage] 500 mg PO BID 01/11/14 10/04/16 10/03/16 500 mg Losartan [Cozaar] 50 mg PO QDAY 10/04/16 10/04/16 10/03/16 50 mg Rosuvastatin Calcium [Crestor] 10 mg PO DAILY 10/04/16 10/04/16 10/03/16 10 mg Previous Rx's Medication Instructions Recorded Last Taken Type Ciprofloxacin HCl [Ciprofloxacin 500 mg PO Q12HR #14 tab 11/26/18 Unknown Rx TAB] Amoxicillin/Potassium Clav 1 each PO Q12H #20 tablet 05/03/19 Unknown Rx [Augmentin 875-125 Tablet] Benzonatate [Tessalon Perles] 100 mg PO Q8HR #30 capsule 05/03/19 Unknown Rx Cetirizine HCl [Zyrtec 10mg tab] 10 mg PO DAILY #30 tablet 05/03/19 Unknown Rx Ibuprofen [Motrin] 400 mg PO Q8H PRN #20 tablet 05/03/19 Unknown Rx Ondansetron [Zofran Odt] 4 mg PO Q6HR PRN #15 tab.rapdis 05/03/19 Unknown Rx methylPREDNISolone [Medrol 4MG 4 mg PO DAILY #21 tab.ds.pk 05/03/19 Unknown Rx DOSEPAK (21 tabs)] Albuterol Mdi (or & Nicu Only) 2 puff IH QID PRN #8.5 gram 05/07/19 Unknown Rx [ProAir HFA Inhaler] guaiFENesin ER [Mucinex ER] 600 mg PO Q12H #14 tablet.er 05/07/19 Unknown Rx Fluconazole (Nf) [Diflucan TAB] 150 mg PO ONCE 1 Days #1 tablet 07/06/20 Unknown Rx Phenazopyridine [Pyridium] 100 mg PO TID #9 tab 07/06/20 Unknown Rx Promethazine [Phenergan] 25 mg PO Q8HR PRN #7 tab 07/06/20 Unknown Rx cephALEXin [Keflex] 500 mg PO BID 7 Days #14 cap 07/06/20 Unknown Rx Allergies Allergy/AdvReac Type Severity Reaction Status Date / Time shellfish derived Allergy Rash Verified 07/17/18 08:33 ED Review of Systems ROS: Stated complaint: KIDNEY PAIN Other details as noted in HPI Comment: All other systems reviewed and negative ED Past Medical Hx - Past Medical History Hx Hypertension: Yes Hx Congestive Heart Failure: No Hx Diabetes: Yes Hx Seizures: (pt denies) Hx Psychiatric Treatment: Yes (no meds) Hx Asthma: No Hx COPD: No Additional medical history: high chol - Surgical History Additional Surgical History: HYSTERECTOMY, ovarian cysts removed in the 90s. cyst removal to back - Social History Smoking Status: Unknown if ever smoked - Medications Home Medications: Home Medications Medication Instructions Recorded Confirmed Last Taken Type Insulin Aspart (Nf) [NovoLOG 100 20 unit SQ AC 01/11/14 10/04/16 10/03/16 History UNITS/ML VIAL] 20 units Insulin Glargine,Hum.rec.anlog 36 unit SQ QHS 01/11/14 10/04/16 10/03/16 History [Lantus] 36 units Sitagliptin Phosphate [Januvia] 25 mg PO DAILY 01/11/14 10/04/16 10/03/16 History 25 mg metFORMIN [Glucophage] 500 mg PO BID 01/11/14 10/04/16 10/03/16 History 500 mg Losartan [Cozaar] 50 mg PO QDAY 10/04/16 10/04/16 10/03/16 History 50 mg Rosuvastatin Calcium [Crestor] 10 mg PO DAILY 10/04/16 10/04/16 10/03/16 History 10 mg Ciprofloxacin HCl [Ciprofloxacin 500 mg PO Q12HR #14 tab 11/26/18 Unknown Rx TAB] Amoxicillin/Potassium Clav 1 each PO Q12H #20 tablet 05/03/19 Unknown Rx [Augmentin 875-125 Tablet] Benzonatate [Tessalon Perles] 100 mg PO Q8HR #30 capsule 05/03/19 Unknown Rx Cetirizine HCl [Zyrtec 10mg tab] 10 mg PO DAILY #30 tablet 05/03/19 Unknown Rx Ibuprofen [Motrin] 400 mg PO Q8H PRN #20 tablet 05/03/19 Unknown Rx Ondansetron [Zofran Odt] 4 mg PO Q6HR PRN #15 tab.rapdis 05/03/19 Unknown Rx methylPREDNISolone [Medrol 4MG 4 mg PO DAILY #21 tab.ds.pk 05/03/19 Unknown Rx DOSEPAK (21 tabs)] Albuterol Mdi (or & Nicu Only) 2 puff IH QID PRN #8.5 gram 05/07/19 Unknown Rx [ProAir HFA Inhaler] guaiFENesin ER [Mucinex ER] 600 mg PO Q12H #14 tablet.er 05/07/19 Unknown Rx Fluconazole (Nf) [Diflucan TAB] 150 mg PO ONCE 1 Days #1 tablet 07/06/20 Unknown Rx Phenazopyridine [Pyridium] 100 mg PO TID #9 tab 07/06/20 Unknown Rx Promethazine [Phenergan] 25 mg PO Q8HR PRN #7 tab 07/06/20 Unknown Rx cephALEXin [Keflex] 500 mg PO BID 7 Days #14 cap 07/06/20 Unknown Rx ED Physical Exam - General Limitations: No Limitations General appearance: alert, in no apparent distress - Head Head exam: Present: atraumatic, normocephalic - Eye Eye exam: Present: normal appearance - ENT ENT exam: Present: mucous membranes moist - Respiratory Respiratory exam: Present: normal lung sounds bilaterally. Absent: respiratory distress, wheezes, rales, rhonchi, stridor, chest wall tenderness, accessory muscle use, decreased breath sounds, prolonged expiratory - Cardiovascular Cardiovascular Exam: Present: regular rate, normal rhythm, normal heart sounds. Absent: systolic murmur, diastolic murmur, rubs, gallop - GI/Abdominal GI/Abdominal exam: Present: soft, tenderness (mild suprapubic), normal bowel sounds. Absent: distended, guarding, rebound, rigid - Back Exam Back exam: Absent: CVA tenderness (R), CVA tenderness (L) - Neurological Exam Neurological exam: Present: alert, oriented X3 - Psychiatric Psychiatric exam: Present: normal affect, normal mood - Skin Skin exam: Present: warm, dry, intact ED Course Vital Signs 07/06/20 08:04 Temperature 98.4 F Pulse Rate 96 H Respiratory 18 Rate Blood Pressure 142/95 O2 Sat by Pulse 100 Oximetry ED Medical Decision Making - Lab Data Result diagrams: 07/06/20 09:36 07/06/20 09:36 Lab Results 07/06/20 07/06/20 07/06/20 Range/Units 09:36 09:36 Unknown WBC 6.8 (4.5-11.0) K/mm3 RBC 4.16 (3.65-5.03) M/mm3 Hgb 11.8 (10.1-14.3) gm/dl Hct 36.1 (30.3-42.9) % MCV 87 (79-97) fl MCH 28 (28-32) pg MCHC 33 (30-34) % RDW 14.1 (13.2-15.2) % Plt Count 376 (140-440) K/mm3 Lymph % (Auto) 34.5 (13.4-35.0) % Bureau % (Auto) 7.1 (0.0-7.3) % Eos % (Auto) 1.2 (0.0-4.3) % Baso % (Auto) 0.9 (0.0-1.8) % Lymph # (Auto) 2.4 (1.2-5.4) K/mm3 Bureau # (Auto) 0.5 (0.0-0.8) K/mm3 Eos # (Auto) 0.1 (0.0-0.4) K/mm3 Baso # (Auto) 0.1 (0.0-0.1) K/mm3 Seg Neutrophils % 56.3 (40.0-70.0) % Seg Neutrophils # 3.9 (1.8-7.7) K/mm3 Sodium 141 (137-145) mmol/L Potassium 4.3 (3.6-5.0) mmol/L Chloride 105.8 (98-107) mmol/L Carbon Dioxide 28 (22-30) mmol/L Anion Gap 12 mmol/L BUN 17 (7-17) mg/dL Creatinine 1.2 (0.6-1.2) mg/dL Estimated GFR 58 ml/min BUN/Creatinine Ratio 14 % Glucose 88 (65-100) mg/dL Calcium 9.8 (8.4-10.2) mg/dL Total Bilirubin 0.20 (0.1-1.2) mg/dL AST 15 (5-40) units/L ALT 11 (7-56) units/L Alkaline Phosphatase 85 (35-129) units/L Total Protein 8.4 H (6.3-8.2) g/dL Albumin 4.2 (3.9-5) g/dL Albumin/Globulin Ratio 1.0 % Lipase 138 H (13-60) units/L Urine Color Yellow (Yellow) Urine Turbidity Hazy (Clear) Urine pH 6.0 (5.0-7.0) Ur Specific [place] 1.013 (1.003-1.030) Urine Protein 100 mg/dl (Negative) mg/dL Urine Glucose (UA) Neg (Negative) mg/dL Urine Ketones Neg (Negative) mg/dL Urine Blood Neg (Negative) Urine Nitrite Neg (Negative) Urine Bilirubin Neg (Negative) Urine Urobilinogen < 2.0 (<2.0) mg/dL Ur Leukocyte Esterase Sm (Negative) Urine WBC (Auto) 56.0 H (0.0-6.0) /HPF Urine RBC (Auto) 2.0 (0.0-6.0) /HPF U Epithel Cells (Auto) 4.0 (0-13.0) /HPF Urine Bacteria (Auto) 1+ (Negative) /HPF Vital Signs 07/06/20 08:04 Temperature 98.4 F Pulse Rate 96 H Respiratory 18 Rate Blood Pressure 142/95 O2 Sat by Pulse 100 Oximetry - Medical Decision Making Patient is a 49-year-old female presents emergency room with complaints of urinary symptoms that began approximately 2 weeks ago. She states her symptoms worsened yesterday. She has associated urinary frequency, odor to her urine, urinary urgency, suprapubic pressure, low back pain. She denies any nausea, vomiting, diarrhea, fever, abnormal vaginal discharge, itching or burning. She has a past medical history of diabetes. No allergies to medications. Vitals are stable. On exam patient has suprapubic abdominal tenderness palpation, no guarding, no rebound, no rigidity, normal bowel sounds, no peritoneal signs. Labs with mild elevation of lipase at 138, otherwise stable, unlikely to be acute pancreatitis as lipase would likely be elevated 3x the upper limit of normal. she is not having epigastric pain or N/v or leukocytosis. UA shows evidence of UTI. Patient given 1 g ceftriaxone IM. Do not suspect acute pyelonephritis at this time, likely cystitis currently. Patient given prescription for Keflex, Pyridium, Phenergan, fluconazole to prevent yeast infection with antibiotics. Advised patient Please take medication as prescribed. Medication may turn your urine orange this is normal. Increase your water intake over the next several days. Please follow-up with your primary care doctor and have your urine retested. You have mild elevation in one of your laboratory tests called lipase it is 138, please discuss with this with the primary care doctor in case they want to alter your diabetes medication. Return to emergency room for any new or worsening symptoms. Critical care attestation.: If time is entered above; I have spent that time in minutes in the direct care of this critically ill patient, excluding procedure time. ED Disposition Clinical Impression: Elevated lipase UTI (urinary tract infection) Qualifiers: Urinary tract infection type: acute cystitis Hematuria presence: without hematuria Qualified Code(s): N30.00 - Acute cystitis without hematuria Disposition: TO HOME OR SELFCARE Is pt being admited?: No Does the pt Need Aspirin: No Condition: Stable Instructions: Urinary Tract Infection, Adult, Abdominal Pain (ED) Additional Instructions: Please take medication as prescribed. Medication may turn your urine orange this is normal. Increase your water intake over the next several days. Please follow-up with your primary care doctor and have your urine retested. You have mild elevation in one of your laboratory tests called lipase it is 138, please discuss with this with the primary care doctor in case they want to alter your d iabetes medication. Return to emergency room for any new or worsening symptoms. Prescriptions: Fluconazole (Nf) [Diflucan TAB] 150 mg PO ONCE 1 Days #1 tablet cephALEXin [Keflex] 500 mg PO BID 7 Days #14 cap Promethazine [Phenergan] 25 mg PO Q8HR PRN #7 tab PRN Reason: Nausea And Vomiting Phenazopyridine [Pyridium] 100 mg PO TID #9 tab Referrals: SARAH GARAY [Other] - 2-3 Days Time of Disposition: 11:05 Print Language: WELSH
== END 2020-07-06 11:54 | disposition home or self-care (01) ==
LOC: ED 07:57
DX: N39.0 Urinary tract infection, site not specified (principal); R74.8 Abnormal levels of other serum enzymes; I10 Essential (primary) hypertension; E11.9 Type 2 diabetes mellitus without complications; Z90.710 Acquired absence of both cervix and uterus; Z98.890 Other specified postprocedural states; Z79.4 Long term (current) use of insulin; Z79.899 Other long term (current) drug therapy; Z91.013 Allergy to seafood
CPT/HCPCS: 36415; 80053; 81001; 83690; 85025; 87086; 96372; 99283; J0696

== ENCOUNTER 2020-09-17 08:45 | Emergency (ER) | payer MEDICARE ==
[2020-09-17 08:54] VITALS: BP 142/96
--- NOTE | 2020-09-17 09:03 | Emergency Department Report ---
ED General Adult HPI - General Chief complaint: Pain General Stated complaint: LEFT SIDE BURNING PUI?: No Time Seen by Provider: 09/17/20 09:00 Source: patient Mode of arrival: Ambulatory Limitations: No Limitations - History of Present Illness Initial comments: 49 yo AA female comes in with neuropathic pain of lue and lle. She states her md put her on tegan 100 bid. She has no fall or trauma. She is non obese. Ambulatory and non ill appearing. blood glucose 91 in ACC no cp no sob no n/v/d no fever or chills no headache or neuro deficit Pt is diabetic and compliant with her mediations -: Gradual, week(s) Location: upper extremity, lower extremity Quality: burning Consistency: intermittent Improves with: none Worsens with: none Associated Symptoms: denies other symptoms Treatments Prior to Arrival: other (tegan) - Related Data Home Medications Medication Instructions Recorded Confirmed Last Taken Insulin Aspart (Nf) [NovoLOG 100 20 unit SQ AC 01/11/14 10/04/16 10/03/16 UNITS/ML VIAL] 20 units Insulin Glargine,Hum.rec.anlog 36 unit SQ QHS 01/11/14 10/04/16 10/03/16 [Lantus] 36 units Sitagliptin Phosphate [Januvia] 25 mg PO DAILY 01/11/14 10/04/16 10/03/16 25 mg metFORMIN [Glucophage] 500 mg PO BID 01/11/14 10/04/16 10/03/16 500 mg Losartan [Cozaar] 50 mg PO QDAY 10/04/16 10/04/16 10/03/16 50 mg Rosuvastatin Calcium [Crestor] 10 mg PO DAILY 10/04/16 10/04/16 10/03/16 10 mg Previous Rx's Medication Instructions Recorded Last Taken Type Ciprofloxacin HCl [Ciprofloxacin 500 mg PO Q12HR #14 tab 11/26/18 Unknown Rx TAB] Amoxicillin/Potassium Clav 1 each PO Q12H #20 tablet 05/03/19 Unknown Rx [Augmentin 875-125 Tablet] Benzonatate [Tessalon Perles] 100 mg PO Q8HR #30 capsule 05/03/19 Unknown Rx Cetirizine HCl [Zyrtec 10mg tab] 10 mg PO DAILY #30 tablet 05/03/19 Unknown Rx Ibuprofen [Motrin] 400 mg PO Q8H PRN #20 tablet 05/03/19 Unknown Rx Ondansetron [Zofran Odt] 4 mg PO Q6HR PRN #15 tab.rapdis 05/03/19 Unknown Rx methylPREDNISolone [Medrol 4MG 4 mg PO DAILY #21 tab.ds.pk 05/03/19 Unknown Rx DOSEPAK (21 tabs)] Albuterol Mdi (or & Nicu Only) 2 puff IH QID PRN #8.5 gram 05/07/19 Unknown Rx [ProAir HFA Inhaler] guaiFENesin ER [Mucinex ER] 600 mg PO Q12H #14 tablet.er 05/07/19 Unknown Rx Fluconazole (Nf) [Diflucan TAB] 150 mg PO ONCE 1 Days #1 tablet 07/06/20 Unknown Rx Phenazopyridine [Pyridium] 100 mg PO TID #9 tab 07/06/20 Unknown Rx Promethazine [Phenergan] 25 mg PO Q8HR PRN #7 tab 07/06/20 Unknown Rx cephALEXin [Keflex] 500 mg PO BID 7 Days #14 cap 07/06/20 Unknown Rx Gabapentin 200 mg PO Q12H #14 capsule 09/17/20 Unknown Rx Allergies Allergy/AdvReac Type Severity Reaction Status Date / Time shellfish derived Allergy Rash Verified 07/17/18 08:33 ED Review of Systems ROS: Stated complaint: LEFT SIDE BURNING Other details as noted in HPI Comment: All other systems reviewed and negative ED Past Medical Hx - Past Medical History Hx Hypertension: Yes Hx Congestive Heart Failure: No Hx Diabetes: Yes Hx Seizures: (pt denies) Hx Psychiatric Treatment: Yes (no meds) Hx Asthma: No Hx COPD: No Additional medical history: high chol, MS - Surgical History Additional Surgical History: HYSTERECTOMY, ovarian cysts removed in the . cyst removal to back - Social History Smoking Status: Never Smoker Substance Use Type: Alcohol - Medications Home Medications: Home Medications Medication Instructions Recorded Confirmed Last Taken Type Insulin Aspart (Nf) [NovoLOG 100 20 unit SQ AC 01/11/14 10/04/16 10/03/16 History UNITS/ML VIAL] 20 units Insulin Glargine,Hum.rec.anlog 36 unit SQ QHS 01/11/14 10/04/16 10/03/16 History [Lantus] 36 units Sitagliptin Phosphate [Januvia] 25 mg PO DAILY 01/11/14 10/04/16 10/03/16 H istory 25 mg metFORMIN [Glucophage] 500 mg PO BID 01/11/14 10/04/16 10/03/16 History 500 mg Losartan [Cozaar] 50 mg PO QDAY 10/04/16 10/04/16 10/03/16 History 50 mg Rosuvastatin Calcium [Crestor] 10 mg PO DAILY 10/04/16 10/04/16 10/03/16 History 10 mg Ciprofloxacin HCl [Ciprofloxacin 500 mg PO Q12HR #14 tab 11/26/18 Unknown Rx TAB] Amoxicillin/Potassium Clav 1 each PO Q12H #20 tablet 05/03/19 Unknown Rx [Augmentin 875-125 Tablet] Benzonatate [Tessalon Perles] 100 mg PO Q8HR #30 capsule 05/03/19 Unknown Rx Cetirizine HCl [Zyrtec 10mg tab] 10 mg PO DAILY #30 tablet 05/03/19 Unknown Rx Ibuprofen [Motrin] 400 mg PO Q8H PRN #20 tablet 05/03/19 Unknown Rx Ondansetron [Zofran Odt] 4 mg PO Q6HR PRN #15 tab.rapdis 05/03/19 Unknown Rx methylPREDNISolone [Medrol 4MG 4 mg PO DAILY #21 tab.ds.pk 05/03/19 Unknown Rx DOSEPAK (21 tabs)] Albuterol Mdi (or & Nicu Only) 2 puff IH QID PRN #8.5 gram 05/07/19 Unknown Rx [ProAir HFA Inhaler] guaiFENesin ER [Mucinex ER] 600 mg PO Q12H #14 tablet.er 05/07/19 Unknown Rx Fluconazole (Nf) [Diflucan TAB] 150 mg PO ONCE 1 Days #1 tablet 07/06/20 Unknown Rx Phenazopyridine [Pyridium] 100 mg PO TID #9 tab 07/06/20 Unknown Rx Promethazine [Phenergan] 25 mg PO Q8HR PRN #7 tab 07/06/20 Unknown Rx cephALEXin [Keflex] 500 mg PO BID 7 Days #14 cap 07/06/20 Unknown Rx Gabapentin 200 mg PO Q12H #14 capsule 09/17/20 Unknown Rx ED Physical Exam - General Limitations: No Limitations General appearance: alert, in no apparent distress - Head Head exam: Present: atraumatic, normocephalic - Eye Eye exam: Present: normal appearance - ENT ENT exam: Present: mucous membranes moist - Neck Neck exam: Present: normal inspection - Respiratory Respiratory exam: Present: normal lung sounds bilaterally. Absent: respiratory distress - Cardiovascular Cardiovascular Exam: Present: regular rate, normal rhythm. Absent: systolic murmur, diastolic murmur, rubs, gallop - GI/Abdominal GI/Abdominal exam: Present: soft, normal bowel sounds - Extremities Exam Extremities exam: Present: normal inspection - Back Exam Back exam: Present: normal inspection - Neurological Exam Neurological exam: Present: alert, oriented X3 - Psychiatric Psychiatric exam: Present: normal affect, normal mood - Skin Skin exam: Present: warm, dry, intact, normal color. Absent: rash ED Course Vital Signs 09/17/20 08:53 Temperature 98.4 F Pulse Rate 107 H Respiratory 20 Rate Blood Pressure 142/96 [Right] O2 Sat by Pulse 100 Oximetry ED Medical Decision Making - Medical Decision Making BG 91 HR 90 on provider exam I've increased tegan to 200 mg BID - which is still low dose- I've told pt to see her pcp for monitoring of response and inc in dose. On dc pt ambulatory and taking po. no neuro deficit. 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 Pt verbalizes understanding of plan of care. - Differential Diagnosis neuropathy Critical care attestation.: If time is entered above; I have spent that time in minutes in the direct care of this critically ill patient, excluding procedure time. ED Disposition Clinical Impression: Neuropathic pain, Diabetes mellitus Disposition: DC-01 TO HOME OR SELFCARE Is pt being admited?: No Does the pt Need Aspirin: No Condition: Stable Instructions: Neuropathic Pain, Diabetes Mellitus Type 2 in Adults (ED) Additional Instructions: FOLLOW UP WITH PCP INCREASE YOUR TEGAN TO 200 MG TWICE PER DAY Prescriptions: Gabapentin 200 mg PO Q12H #14 capsule Referrals: LARS GUDINO [Other] - 3-5 Days Time of Disposition: 09:13
== END 2020-09-17 09:20 | disposition home or self-care (01) ==
LOC: ED 08:45
DX: M79.2 Neuralgia and neuritis, unspecified (principal); E11.9 Type 2 diabetes mellitus without complications; I10 Essential (primary) hypertension; Z90.710 Acquired absence of both cervix and uterus; Z79.4 Long term (current) use of insulin; Z79.899 Other long term (current) drug therapy; Z91.013 Allergy to seafood
CPT/HCPCS: 82962; 99282

== ENCOUNTER 2021-03-23 12:05 | Emergency (ER) | payer MEDICARE ==
--- NOTE | 2021-03-23 12:50 | XRay Report ---
CHEST PA AND LATERAL VIEWS INDICATION: cough with mucus production. COMPARISON: 05/07/2019 FINDINGS: Support devices: None. Heart: Within normal limits. Lungs/Pleura: No acute pulmonary or pleural findings. IMPRESSION: 1. No acute findings. Signer Name: Korey Stockton MD Signed: 03/23/2021 12:46 PM Workstation Name: [id number]
--- NOTE | 2021-03-23 13:07 | Emergency Department Report ---
- General Chief Complaint: Upper Respiratory Infection Stated Complaint: CHILLS Time Seen by Provider: 03/23/21 12:18 Source: patient Mode of arrival: Ambulatory Limitations: No Limitations - History of Present Illness Initial Comments: Patient is a 50-year-old female presents emergency room with complaints of a cough that began 5 days ago. She has associated yellow mucus production. She states that she is also been having body aches, chills, occasional shortness of breath. She denies any shortness of breath currently. She denies any fever, vomiting, diarrhea, chest pain. She denies any known sick contacts or recent travel. She has been vaccinated for COVID-19 fully. Past medical history of bronchitis and diabetes. She is a never smoker. She states that she ran out of her albuterol inhaler. She has no medication allergies. - Related Data Home Medications Medication Instructions Recorded Confirmed Last Taken Insulin Aspart (Nf) [NovoLOG 100 20 unit SQ AC 01/11/14 10/04/16 10/03/16 UNITS/ML VIAL] 20 units Insulin Glargine,Hum.rec.anlog 36 unit SQ QHS 01/11/14 10/04/16 10/03/16 [Lantus VIAL] 36 units Sitagliptin Phosphate [Januvia] 25 mg PO DAILY 01/11/14 10/04/16 10/03/16 25 mg metFORMIN [Glucophage] 500 mg PO BID 01/11/14 10/04/16 10/03/16 500 mg Losartan [Cozaar] 50 mg PO QDAY 10/04/16 10/04/16 10/03/16 50 mg Rosuvastatin Calcium [Crestor] 10 mg PO DAILY 10/04/16 10/04/16 10/03/16 10 mg Previous Rx's Medication Instructions Recorded Last Taken Type Ciprofloxacin HCl [Ciprofloxacin 500 mg PO Q12HR #14 tab 11/26/18 Unknown Rx TAB] Amoxicillin/Potassium Clav 1 each PO Q12H #20 tablet 05/03/19 Unknown Rx [Augmentin 875-125 Tablet] Cetirizine HCl [Zyrtec 10mg tab] 10 mg PO DAILY #30 tablet 05/03/19 Unknown Rx Ibuprofen [Motrin] 400 mg PO Q8H PRN #20 tablet 05/03/19 Unknown Rx Ondansetron [Zofran Odt] 4 mg PO Q6HR PRN #15 tab.rapdis 05/03/19 Unknown Rx methylPREDNISolone [Medrol 4MG 4 mg PO DAILY #21 tab.ds.pk 05/03/19 Unknown Rx DOSEPAK (21 tabs)] guaiFENesin ER [Mucinex ER] 600 mg PO Q12H #14 tablet.er 05/07/19 Unknown Rx Fluconazole (Nf) [Diflucan TAB] 150 mg PO ONCE 1 Days #1 tablet 07/06/20 Unknown Rx Phenazopyridine [Pyridium] 100 mg PO TID #9 tab 07/06/20 Unknown Rx Promethazine [Phenergan] 25 mg PO Q8HR PRN #7 tab 07/06/20 Unknown Rx cephALEXin [Keflex] 500 mg PO BID 7 Days #14 cap 07/06/20 Unknown Rx Gabapentin 200 mg PO Q12H #14 capsule 09/17/20 Unknown Rx Albuterol Mdi (or & Nicu Only) 2 puff IH QID PRN #8.5 gram 03/23/21 Unknown Rx [ProAir HFA Inhaler] Benzonatate [Tessalon Perles] 100 mg PO Q8HR PRN #14 capsule 03/23/21 Unknown Rx guaiFENesin ER [Mucinex ER] 600 mg PO Q12H #14 tablet.er 03/23/21 Unknown Rx Allergies Allergy/AdvReac Type Severity Reaction Status Date / Time shellfish derived Allergy Rash Verified 03/23/21 12:13 ED Review of Systems ROS: Stated complaint: CHILLS Other details as noted in HPI Comment: All other systems reviewed and negative ED Past Medical Hx - Past Medical History Hx Hypertension: Yes Hx Congestive Heart Failure: No Hx Diabetes: Yes Hx Seizures: (pt denies) Hx Psychiatric Treatment: Yes (no meds) Hx Asthma: No Hx COPD: No Additional medical history: high chol, MS - Surgical History Additional Surgical History: HYSTERECTOMY, ovarian cysts removed in the s. cyst removal to back - Social History Smoking Status: Never Smoker Substance Use Type: Alcohol - Medications Home Medications: Home Medications Medication Instructions Recorded Confirmed Last Taken Type Insulin Aspart (Nf) [NovoLOG 100 20 unit SQ AC 01/11/14 10/04/16 10/03/16 History UNITS/ML VIAL] 20 units Insulin Glargine,Hum.rec.anlog 36 unit SQ QHS 01/11/14 10/04/16 10/03/16 History [Lantus VIAL] 36 units Sitagliptin Phosphate [Januvia] 25 mg PO DAILY 01/11/14 10/04/16 10/03/16 History 25 mg metFORMIN [Glucophage] 500 mg PO BID 01/11/14 10/04/16 10/03/16 History 500 mg Losartan [Cozaar] 50 mg PO QDAY 10/04/16 10/04/16 10/03/16 History 50 mg Rosuvastatin Calcium [Crestor] 10 mg PO DAILY 10/04/16 10/04/16 10/03/16 History 10 mg Ciprofloxacin HCl [Ciprofloxacin 500 mg PO Q12HR #14 tab 11/26/18 Unknown Rx TAB] Amoxicillin/Potassium Clav 1 each PO Q12H #20 tablet 05/03/19 Unknown Rx [Augmentin 875-125 Tablet] Cetirizine HCl [Zyrtec 10mg tab] 10 mg PO DAILY #30 tablet 05/03/19 Unknown Rx Ibuprofen [Motrin] 400 mg PO Q8H PRN #20 tablet 05/03/19 Unknown Rx Ondansetron [Zofran Odt] 4 mg PO Q6HR PRN #15 tab.rapdis 05/03/19 Unknown Rx methylPREDNISolone [Medrol 4MG 4 mg PO DAILY #21 tab.ds.pk 05/03/19 Unknown Rx DOSEPAK (21 tabs)] guaiFENesin ER [Mucinex ER] 600 mg PO Q12H #14 tablet.er 05/07/19 Unknown Rx Fluconazole (Nf) [Diflucan TAB] 150 mg PO ONCE 1 Days #1 tablet 07/06/20 Unknown Rx Phenazopyridine [Pyridium] 100 mg PO TID #9 tab 07/06/20 Unknown Rx Promethazine [Phenergan] 25 mg PO Q8HR PRN #7 tab 07/06/20 Unknown Rx cephALEXin [Keflex] 500 mg PO BID 7 Days #14 cap 07/06/20 Unknown Rx Gabapentin 200 mg PO Q12H #14 capsule 09/17/20 Unknown Rx Albuterol Mdi (or & Nicu Only) 2 puff IH QID PRN #8.5 gram 03/23/21 Unknown Rx [ProAir HFA Inhaler] Benzonatate [Tessalon Perles] 100 mg PO Q8HR PRN #14 capsule 10/05/21 Unknown Rx guaiFENesin ER [Mucinex ER] 600 mg PO Q12H #14 tablet.er 03/23/21 Unknown Rx ED Physical Exam - General Limitations: No Limitations General appearance: alert, in no apparent distress - Head Head exam: Present: atraumatic, normocephalic - Eye Eye exam: Present: normal appearance - ENT ENT exam: Present: mucous membranes moist - Respiratory Respiratory exam: Present: normal lung sounds bilaterally. Absent: respiratory distress, wheezes, rales, rhonchi, stridor, chest wall tenderness, accessory muscle use, decreased breath sounds, prolonged expiratory - Cardiovascular Cardiovascular Exam: Present: regular rate, normal rhythm, normal heart sounds. Absent: systolic murmur, diastolic murmur, rubs, gallop - Neurological Exam Neurological exam: Present: alert, oriented X3 - Psychiatric Psychiatric exam: Present: normal affect, normal mood - Skin Skin exam: Present: warm, dry, intact ED Course Vital Signs 03/23/21 03/23/21 12:12 13:12 Temperature 98.2 F 99.1 F Pulse Rate 100 H 94 H Respiratory 49 H 19 Rate Blood Pressure 136/90 137/86 O2 Sat by Pulse 98 99 Oximetry ED Medical Decision Making - Radiology Data Radiology results: report reviewed Ordering Physician: CLIFTON FERRERA Date of Service: 03/23/21 Procedure(s): XR chest routine 2V Accession Number(s): [id number] cc: CLIFTON FERRERA Fluoro Time In Minutes: CHEST PA AND LATERAL VIEWS INDICATION: cough with mucus production. COMPARISON: 05/07/2019 FINDINGS: Support devices: None. Heart: Within normal limits. Lungs/Pleura: No acute pulmonary or pleural findings. IMPRESSION: 1. No acute findings. Signer Name: Korey Stockton MD Signed: 03/23/2021 12:46 PM Workstation Name: [id number] Transcribed By: MICHELLE Dictated By: Korey Stockton MD Electronically Authenticated By: Korey Stockton MD Signed Date/Time: 03/23/21 124 DD/ 45 TD/TT: - Medical Decision Making Patient is a 50-year-old female presents emergency room with complaints of a cough that began 5 days ago. She has associated yellow mucus production. She states that she is also been having body aches, chills, occasional shortness of breath. She denies any shortness of breath currently. She denies any fever, vomiting, diarrhea, chest pain. She denies any known sick contacts or recent travel. She has been vaccinated for COVID-19 fully. Past medical history of bronchitis and diabetes. She is a never smoker. She states that she ran out of her albuterol inhaler. She has no medication allergies. Initial triage vitals are in error, advised EMT to repeat vitals, vitals are normal. CXR: 1. No acute findings. Patient has no fever, no hypoxia. Breath sounds are clear bilaterally. Do not suspect bacterial pneumonia or bacterial bronchitis at this time. Discussed supportive care and symptomatic treatment with patient and the importance of outpatient follow-up and strict return precautions. advised pt Please take medication as prescribed. Increase your fluid intake. Drink warm liquids. May use a vaporizer. Follow-up with your primary care doctor for reexamination. Return to emergency room for any new or worsening symptoms. Recommend for you to get outpatient COVID-19 testing and if positive you will need to self quarantine for 10 days from the onset of symptoms. Critical care attestation.: If time is entered above; I have spent that time in minutes in the direct care of this critically ill patient, excluding procedure time. ED Disposition Clinical Impression: Upper respiratory infection Qualifiers: URI type: unspecified URI Qualified Code(s): J06.9 - Acute upper respiratory infection, unspecified Disposition: 01 HOME / SELF CARE / HOMELESS Is pt being admited?: No Does the pt Need Aspirin: No Condition: Stable Instructions: Viral Respiratory Infection Additional Instructions: Please take medication as prescribed. Increase your fluid intake. Drink warm liquids. May use a vaporizer. Follow-up with your primary care doctor for reexamination. Return to emergency room for any new or worsening symptoms. Recommend for you to get outpatient COVID-19 testing and if positive you will need to self quarantine for 10 days from the onset of symptoms. Prescriptions: guaiFENesin ER [Mucinex ER] 600 mg PO Q12H #14 tablet.er Albuterol Mdi (or & Nicu Only) [ProAir HFA Inhaler] 2 puff IH QID PRN #8.5 gram PRN Reason: Shortness Of Breath Benzonatate [Tessalon Perles] 100 mg PO Q8HR PRN #14 capsule PRN Reason: cough Referrals: your, primary care doctor [Other] - 2-3 Days Time of Disposition: 13:05 Print Language: GHANAIAN
[2021-03-23 13:13] VITALS: BP 137/86
== END 2021-03-23 13:49 | disposition home or self-care (01) ==
LOC: ED 12:05
DX: J06.9 Acute upper respiratory infection, unspecified (principal); I10 Essential (primary) hypertension; E11.8 Type 2 diabetes mellitus with unspecified complications; E78.00 Pure hypercholesterolemia, unspecified; Z98.890 Other specified postprocedural states; Z91.013 Allergy to seafood
CPT/HCPCS: 71046; 99283

== ENCOUNTER 2021-09-23 18:32 | Emergency (ER) | payer MEDICARE ==
[2021-09-23] MEDS ORDERED: SODIUM CHLORIDE 0.9% 500 ML 500 ML IV ONE (18:53)
[2021-09-23] MEDS ORDERED: ONDANSETRON 4 MG/2 ML INJ IV ONE (18:53)
[2021-09-23] MEDS ORDERED: KETOROLAC 30 MG/1 ML INJ IV ONE (18:53)
--- NOTE | 2021-09-23 19:13 | Emergency Department Report ---
<SUNI BUNCH - Last Filed: 09/23/21 20:16> ED Abdominal Pain HPI - General Stated Complaint: ABD PAIN PUI?: No Time Seen by Provider: 09/23/21 19:04 Source: patient Mode of arrival: Stretcher Limitations: No Limitations - History of Present Illness MD Complaint: flank pain -: Sudden, During the night Location: LLQ, L flank Radiation: none Migration to: no migration Severity: moderate Severity scale (0 -10): 6 Quality: cramping, sharp Consistency: constant Improves With: nothing Worsens With: nothing Associated Symptoms: nausea, vomiting (The patient has a history of hysterectomy and has left flank pain radiating to her left lower quadrant similar to previous kidney stone pain.) - Related Data Home Medications Medication Instructions Recorded Confirmed Last Taken Insulin Aspart (Nf) [NovoLOG 100 20 unit SQ AC 01/11/14 10/04/16 10/03/16 UNITS/ML VIAL] 20 units Insulin Glargine,Hum.rec.anlog 36 unit SQ QHS 01/11/14 10/04/16 10/03/16 [Lantus VIAL] 36 units Sitagliptin Phosphate [Januvia] 25 mg PO DAILY 01/11/14 10/04/16 10/03/16 25 mg metFORMIN [Glucophage] 500 mg PO BID 01/11/14 10/04/16 10/03/16 500 mg Losartan [Cozaar] 50 mg PO QDAY 10/04/16 10/04/16 10/03/16 50 mg Rosuvastatin Calcium [Crestor] 10 mg PO DAILY 10/04/16 10/04/16 10/03/16 10 mg Previous Rx's Medication Instructions Recorded Last Taken Type Ciprofloxacin HCl [Ciprofloxacin 500 mg PO Q12HR #14 tab 11/26/18 Unknown Rx TAB] Amoxicillin/Potassium Clav 1 each PO Q12H #20 tablet 05/03/19 Unknown Rx [Augmentin 875-125 Tablet] Cetirizine HCl [Zyrtec 10mg tab] 10 mg PO DAILY #30 tablet 05/03/19 Unknown Rx Ibuprofen [Motrin] 400 mg PO Q8H PRN #20 tablet 05/03/19 Unknown Rx Ondansetron [Zofran Odt] 4 mg PO Q6HR PRN #15 tab.rapdis 05/03/19 Unknown Rx methylPREDNISolone [Medrol 4MG 4 mg PO DAILY #21 tab.ds.pk 05/03/19 Unknown Rx DOSEPAK (21 tabs)] guaiFENesin ER [Mucinex ER] 600 mg PO Q12H #14 tablet.er 05/07/19 Unknown Rx Fluconazole (Nf) [Diflucan TAB] 150 mg PO ONCE 1 Days #1 tablet 07/06/20 Unknown Rx Phenazopyridine [Pyridium] 100 mg PO TID #9 tab 07/06/20 Unknown Rx Promethazine [Phenergan] 25 mg PO Q8HR PRN #7 tab 07/06/20 Unknown Rx cephALEXin [Keflex] 500 mg PO BID 7 Days #14 cap 07/06/20 Unknown Rx Gabapentin 200 mg PO Q12H #14 capsule 09/17/20 Unknown Rx Albuterol Mdi (or & Nicu Only) 2 puff IH QID PRN #8.5 gram 03/23/21 Unknown Rx [ProAir HFA Inhaler] Benzonatate [Tessalon Perles] 100 mg PO Q8HR PRN #14 capsule 03/23/21 Unknown Rx guaiFENesin ER [Mucinex ER] 600 mg PO Q12H #14 tablet.er 03/23/21 Unknown Rx Allergies Allergy/AdvReac Type Severity Reaction Status Date / Time shellfish derived Allergy Rash Verified 03/23/21 12:13 ED Review of Systems Constitutional: denies: chills, fever Eyes: denies: eye pain, eye discharge, vision change ENT: denies: ear pain, throat pain Respiratory: denies: cough, shortness of breath, wheezing Cardiovascular: denies: chest pain, palpitations Endocrine: no symptoms reported Gastrointestinal: abdominal pain. denies: nausea, diarrhea Genitourinary: denies: urgency, dysuria, discharge Musculoskeletal: denies: back pain, joint swelling, arthralgia Skin: denies: rash, lesions Neurological: denies: headache, weakness, paresthesias Psychiatric: denies: anxiety, depression Hematological/Lymphatic: denies: easy bleeding, easy bruising ED Past Medical Hx - Past Medical History Hx Hypertension: Yes Hx Congestive Heart Failure: No Hx Diabetes: Yes Hx Seizures: (pt denies) Hx Psychiatric Treatment: Yes (no meds) Hx Asthma: No Hx COPD: No Additional medical history: high chol, MS - Surgical History Additional Surgical History: HYSTERECTOMY, ovarian cysts removed in the s. cyst removal to back - Social History Smoking Status: Never Smoker Substance Use Type: Alcohol - Medications Home Medications: Home Medications Medication Instructions Recorded Confirmed Last Taken Type Insulin Aspart (Nf) [NovoLOG 100 20 unit SQ AC 01/11/14 10/04/16 10/03/16 History UNITS/ML VIAL] 20 units Insulin Glargine,Hum.rec.anlog 36 unit SQ QHS 01/11/14 10/04/16 10/03/16 History [Lantus VIAL] 36 units Sitagliptin Phosphate [Januvia] 25 mg PO DAILY 01/11/14 10/04/16 10/03/16 History 25 mg metFORMIN [Glucophage] 500 mg PO BID 01/11/14 10/04/16 10/03/16 History 500 mg Losartan [Cozaar] 50 mg PO QDAY 10/04/16 10/04/16 10/03/16 History 50 mg Rosuvastatin Calcium [Crestor] 10 mg PO DAILY 10/04/16 10/04/16 10/03/16 History 10 mg Ciprofloxacin HCl [Ciprofloxacin 500 mg PO Q12HR #14 tab 11/26/18 Unknown Rx TAB] Amoxicillin/Potassium Clav 1 each PO Q12H #20 tablet 05/03/19 Unknown Rx [Augmentin 875-125 Tablet] Cetirizine HCl [Zyrtec 10mg tab] 10 mg PO DAILY #30 tablet 05/03/19 Unknown Rx Ibuprofen [Motrin] 400 mg PO Q8H PRN #20 tablet 05/03/19 Unknown Rx Ondansetron [Zofran Odt] 4 mg PO Q6HR PRN #15 tab.rapdis 05/03/19 Unknown Rx methylPREDNISolone [Medrol 4MG 4 mg PO DAILY #21 tab.ds.pk 05/03/19 Unknown Rx DOSEPAK (21 tabs)] guaiFENesin ER [Mucinex ER] 600 mg PO Q12H #14 tablet.er 05/07/19 Unknown Rx Fluconazole (Nf) [Diflucan TAB] 150 mg PO ONCE 1 Days #1 tablet 07/06/20 Unknown Rx Phenazopyridine [Pyridium] 100 mg PO TID #9 tab 07/06/20 Unknown Rx Promethazine [Phenergan] 25 mg PO Q8HR PRN #7 tab 07/06/20 Unknown Rx cephALEXin [Keflex] 500 mg PO BID 7 Days #14 cap 07/06/20 Unknown Rx Gabapentin 200 mg PO Q12H #14 capsule 09/17/20 Unknown Rx Albuterol Mdi (or & Nicu Only) 2 puff IH QID PRN #8.5 gram 03/23/21 Unknown Rx [ProAir HFA Inhaler] Benzonatate [Tessalon Perles] 100 mg PO Q8HR PRN #14 capsule 03/23/21 Unknown Rx guaiFENesin ER [Mucinex ER] 600 mg PO Q12H #14 tablet.er 03/23/21 Unknown Rx ED Physical Exam - General General appearance: alert, in no apparent distress - Head Head exam: Present: atraumatic, normocephalic - Eye Eye exam: Present: normal appearance - ENT ENT exam: Present: mucous membranes moist - Neck Neck exam: Present: normal inspection - Respiratory Respiratory exam: Present: normal lung sounds bilaterally. Absent: respiratory distress - Cardiovascular Cardiovascular Exam: Present: regular rate, normal rhythm. Absent: systolic murmur, diastolic murmur, rubs, gallop - GI/Abdominal GI/Abdominal exam: Present: soft, tenderness (Left flank, left lower quadrant tenderness no rebound), normal bowel sounds - Rectal Rectal exam: Present: deferred - Extremities Exam Extremities exam: Present: normal inspection - Back Exam Back exam: Present: normal inspection - Neurological Exam Neurological exam: Present: alert, oriented X3 - Psychiatric Psychiatric exam: Present: normal affect, normal mood - Skin Skin exam: Present: warm, dry, intact, normal color. Absent: rash ED Disposition Clinical Impression: Acute abdominal pain Disposition: HOME / SELF CARE / HOMELESS Condition: Stable Instructions: Abdominal Pain, Adult, [id number] Referrals: LEANNE OSULLIVAN MD [Primary Care Provider] - 3-5 Days <MATT ARELLANO - Last Filed: 09/23/21 22:22> ED Review of Systems ROS: Stated complaint: ABD PAIN Other details as noted in HPI ED Course Vital Signs 09/23/21 09/23/21 09/23/21 19:40 21:17 22:00 Temperature 98.2 F Pulse Rate 82 103 H Respiratory 18 12 Rate Blood Pressure 160/100 Blood Pressure 130/83 [Left] O2 Sat by Pulse 98 Oximetry ED Medical Decision Making - Lab Data Result diagrams: 09/23/21 20:33 09/23/21 20:33 - Radiology Data Radiology results: report reviewed - Medical Decision Making CT abdomen and pelvis is negative for acute finding. Labs reviewed and is unremarkable except for slightly elevated blood glucose. Patient given prescription for tramadol and Zofran and advised to follow-up with primary care physician in the next 2 to 3 days and to return to the ER if he develop any new symptoms. Critical care attestation.: If time is entered above; I have spent that time in minutes in the direct care of this critically ill patient, excluding procedure time. ED Disposition Is pt being admited?: No
[2021-09-23] MEDS ORDERED: MORPHINE 4 MG/1 ML INJ IV ONE (20:17)
[2021-09-23] MEDS ORDERED: SODIUM CHLORIDE 0.9% 1000 ML 1,000 ML ONE (20:59)
[2021-09-23] MEDS ORDERED: ONDANSETRON 4 MG/2 ML INJ ONE (20:59)
[2021-09-23] MEDS ORDERED: KETOROLAC 30 MG/1 ML INJ ONE (20:59)
--- NOTE | 2021-09-23 21:05 | Cat Scan Report ---
CT ABDOMEN AND PELVIS WITHOUT CONTRAST INDICATION / CLINICAL INFORMATION: L flank pain hx of kidney stone. TECHNIQUE: Axial CT images were obtained through the abdomen and pelvis without IV contrast. All CT scans at this location are performed using CT dose reduction for ALARA by means of automated exposure control. COMPARISON: None available. FINDINGS: LOWER CHEST: No significant abnormality. AORTA / ARTERIES: No significant abnormality. IVC / VEINS: No significant abnormality. LYMPH NODES: No significant adenopathy. COLON: No significant abnormality. APPENDIX: No significant abnormality. STOMACH / SMALL BOWEL: No significant abnormality. PERITONEUM: No free fluid. No free air. No fluid collection. LIVER: No significant abnormality. GALLBLADDER: No significant abnormality. BILE DUCTS: No significant abnormality. PANCREAS: No significant abnormality. SPLEEN: No significant abnormality. ADRENALS: No significant abnormality. RIGHT KIDNEY / URETER: No significant abnormality. LEFT KIDNEY / URETER: No significant abnormality. URINARY BLADDER: Moderate distention of the urinary bladder. REPRODUCTIVE ORGANS: No significant abnormality. SKELETAL SYSTEM: No significant abnormality. ADDITIONAL FINDINGS: None. IMPRESSION: 1. No hydronephrosis nephrolithiasis. The urinary bladder is moderately distended. Signer Name: Jeffrey Ruff DO Signed: 09/23/2021 9:01 PM Workstation Name: [id number]
[2021-09-23 21:18] LABS: Basophils % (Auto) 0.6 % (0.0-1.8); Eosinophils # (Auto) 0.2 K/mm3 (0.0-0.4); Hematocrit 37.8 % (30.3-42.9); Hemoglobin 12.8 gm/dl (10.1-14.3); Lymphocytes % (Auto) 48.5 % (13.4-35.0); Mean Corpuscular HGB Conc 34 % (30-34); Mean Corpuscular Volume 83 fl (79-97); Monocytes # (Auto) 0.4 K/mm3 (0.0-0.8); Monocytes % (Auto) 7.3 % (0.0-7.3); Platelet Count 366 K/mm3 (140-440); Red Blood Count 4.55 M/mm3 (3.65-5.03); Red Cell Distribution Width 14.1 % (13.2-15.2)
[2021-09-23 21:28] LABS: Calcium 10.5 mg/dL (8.4-10.2)
[2021-09-23 21:55] LABS: Bacteria,Urine 2+ /HPF (Negative)
[2021-09-23 22:03] LABS: Color,Urine Colorless (Yellow)
[2021-09-23 22:04] LABS: Bilirubin,Urine Negative (Negative); Blood,Urine Small (Negative); Urobilinogen,Urine < 2.0 mg/dL (<2.0)
[2021-09-23 22:15] VITALS: BP 130/83
== END 2021-09-23 22:49 | disposition home or self-care (01) ==
LOC: ED 18:32
DX: R10.9 Unspecified abdominal pain (principal); F17.200 Nicotine dependence, unspecified, uncomplicated; E11.8 Type 2 diabetes mellitus with unspecified complications; F10.20 Alcohol dependence, uncomplicated
CPT/HCPCS: 36415; 74176; 80048; 81001; 85025; 96361; 96374; 96375; 99284; J1885; J2270; J2405; J7030; Q0162

== ENCOUNTER 2021-10-02 13:22 | Emergency (ER) | payer MEDICARE ==
--- NOTE | 2021-10-02 17:00 | Emergency Department Report ---
<SALIMA CUETO L - Last Filed: 10/02/21 16:56> ED Abdominal Pain HPI - General Chief Complaint: Abdominal Pain Stated Complaint: LT SIDE PAIN Source: patient Mode of arrival: Ambulatory Limitations: No Limitations - History of Present Illness Initial Comments: 50-year-old female presents to the ED complaining of left lower quadrant pain x3 days. Patient states that she was evaluate in the ED on last . She states that pain has not relieved. Patient states that she has been vomiting for the last 3 days. Patient states she is unable to eat. She states that pain is worsened in the left lower quadrant. Denies taking any medication for pain. Patient denies any dysuria ,fever ,chills , shortness of breath, chest pain or any discomfort at present time. No acute distress noted. No ill appearance noted. MD Complaint: abdominal pain Onset/Timin -: days(s) Location: LLQ Radiation: none Severity scale (0 -10): 8 Quality: aching Consistency: constant Improves With: nothing Worsens With: nothing Associated Symptoms: vomiting - Related Data Home Medications Medication Instructions Recorded Confirmed Last Taken Insulin Aspart (Nf) [NovoLOG 100 20 unit SQ AC 01/11/14 10/04/16 10/03/16 UNITS/ML VIAL] 20 units Insulin Glargine,Hum.rec.anlog 36 unit SQ QHS 01/11/14 10/04/16 10/03/16 [Lantus VIAL] 36 units Sitagliptin Phosphate [Januvia] 25 mg PO DAILY 01/11/14 10/04/16 10/03/16 25 mg metFORMIN [Glucophage] 500 mg PO BID 01/11/14 10/04/16 10/03/16 500 mg Losartan [Cozaar] 50 mg PO QDAY 10/04/16 10/04/16 10/03/16 50 mg Rosuvastatin Calcium [Crestor] 10 mg PO DAILY 10/04/16 10/04/16 10/03/16 10 mg Previous Rx's Medication Instructions Recorded Last Taken Type Ciprofloxacin HCl [Ciprofloxacin 500 mg PO Q12HR #14 tab 11/26/18 Unknown Rx TAB] Amoxicillin/Potassium Clav 1 each PO Q12H #20 tablet 05/03/19 Unknown Rx [Augmentin 875-125 Tablet] Cetirizine HCl [Zyrtec 10mg tab] 10 mg PO DAILY #30 tablet 05/03/19 Unknown Rx Ibuprofen [Motrin] 400 mg PO Q8H PRN #20 tablet 05/03/19 Unknown Rx Ondansetron [Zofran Odt] 4 mg PO Q6HR PRN #15 tab.rapdis 05/03/19 Unknown Rx methylPREDNISolone [Medrol 4MG 4 mg PO DAILY #21 tab.ds.pk 05/03/19 Unknown Rx DOSEPAK (21 tabs)] guaiFENesin ER [Mucinex ER] 600 mg PO Q12H #14 tablet.er 05/07/19 Unknown Rx Fluconazole (Nf) [Diflucan TAB] 150 mg PO ONCE 1 Days #1 tablet 07/06/20 Unknown Rx Phenazopyridine [Pyridium] 100 mg PO TID #9 tab 07/06/20 Unknown Rx Promethazine [Phenergan] 25 mg PO Q8HR PRN #7 tab 07/06/20 Unknown Rx cephALEXin [Keflex] 500 mg PO BID 7 Days #14 cap 07/06/20 Unknown Rx Gabapentin 200 mg PO Q12H #14 capsule 09/17/20 Unknown Rx Albuterol Mdi (or & Nicu Only) 2 puff IH QID PRN #8.5 gram 03/23/21 Unknown Rx [ProAir HFA Inhaler] Benzonatate [Tessalon Perles] 100 mg PO Q8HR PRN #14 capsule 03/23/21 Unknown Rx guaiFENesin ER [Mucinex ER] 600 mg PO Q12H #14 tablet.er 03/23/21 Unknown Rx Ondansetron [Zofran Odt] 4 mg PO Q8HR PRN #14 tab.rapdis 09/23/21 Unknown Rx traMADoL [Ultram 50 MG tab] 50 mg PO Q4HR PRN #14 tablet 09/23/21 Unknown Rx Allergies Allergy/AdvReac Type Severity Reaction Status Date / Time shellfish derived Allergy Rash Verified 03/23/21 12:13 ED Past Medical Hx - Past Medical History Hx Hypertension: Yes Hx Congestive Heart Failure: No Hx Diabetes: Yes Hx Seizures: (pt denies) Hx Psychiatric Treatment: Yes (no meds) Hx Asthma: No Hx COPD: No Additional medical history: high chol, MS - Surgical History Additional Surgical History: HYSTERECTOMY, ovarian cysts removed in the 90s. c yst removal to back - Social History Smoking Status: Never Smoker Substance Use Type: Alcohol - Medications Home Medications: Home Medications Medication Instructions Recorded Confirmed Last Taken Type Insulin Aspart (Nf) [NovoLOG 100 20 unit SQ AC 01/11/14 10/04/16 10/03/16 History UNITS/ML VIAL] 20 units Insulin Glargine,Hum.rec.anlog 36 unit SQ QHS 01/11/14 10/04/16 10/03/16 History [Lantus VIAL] 36 units Sitagliptin Phosphate [Januvia] 25 mg PO DAILY 01/11/14 10/04/16 10/03/16 History 25 mg metFORMIN [Glucophage] 500 mg PO BID 01/11/14 10/04/16 10/03/16 History 500 mg Losartan [Cozaar] 50 mg PO QDAY 10/04/16 10/04/16 10/03/16 History 50 mg Rosuvastatin Calcium [Crestor] 10 mg PO DAILY 10/04/16 10/04/16 10/03/16 History 10 mg Ciprofloxacin HCl [Ciprofloxacin 500 mg PO Q12HR #14 tab 11/26/18 Unknown Rx TAB] Amoxicillin/Potassium Clav 1 each PO Q12H #20 tablet 05/03/19 Unknown Rx [Augmentin 875-125 Tablet] Cetirizine HCl [Zyrtec 10mg tab] 10 mg PO DAILY #30 tablet 05/03/19 Unknown Rx Ibuprofen [Motrin] 400 mg PO Q8H PRN #20 tablet 05/03/19 Unknown Rx Ondansetron [Zofran Odt] 4 mg PO Q6HR PRN #15 tab.rapdis 05/03/19 Unknown Rx methylPREDNISolone [Medrol 4MG 4 mg PO DAILY #21 tab.ds.pk 05/03/19 Unknown Rx DOSEPAK (21 tabs)] guaiFENesin ER [Mucinex ER] 600 mg PO Q12H #14 tablet.er 05/07/19 Unknown Rx Fluconazole (Nf) [Diflucan TAB] 150 mg PO ONCE 1 Days #1 tablet 07/06/20 Unkno wn Rx Phenazopyridine [Pyridium] 100 mg PO TID #9 tab 07/06/20 Unknown Rx Promethazine [Phenergan] 25 mg PO Q8HR PRN #7 tab 07/06/20 Unknown Rx cephALEXin [Keflex] 500 mg PO BID 7 Days #14 cap 07/06/20 Unknown Rx Gabapentin 200 mg PO Q12H #14 capsule 09/17/20 Unknown Rx Albuterol Mdi (or & Nicu Only) 2 puff IH QID PRN #8.5 gram 03/23/21 Unknown Rx [ProAir HFA Inhaler] Benzonatate [Tessalon Perles] 100 mg PO Q8HR PRN #14 capsule 03/23/21 Unknown Rx guaiFENesin ER [Mucinex ER] 600 mg PO Q12H #14 tablet.er 03/23/21 Unknown Rx Ondansetron [Zofran Odt] 4 mg PO Q8HR PRN #14 tab.rapdis 09/23/21 Unknown Rx traMADoL [Ultram 50 MG tab] 50 mg PO Q4HR PRN #14 tablet 09/23/21 Unknown Rx ED Physical Exam - General Limitations: No Limitations ED Disposition Clinical Impression: Nausea and vomiting, Abdominal pain Disposition: HOME / SELF CARE / HOMELESS Condition: Stable Instructions: Abdominal Pain (ED), Nausea, Adult, Abdominal Pain, Adult, [id number] Referrals: PRIMARY CARE,MD [Primary Care Provider] - 3-5 Days <MISTY QUICK - Last Filed: 10/02/21 20:00> ED Review of Systems ROS: Stated complaint: LT SIDE PAIN Other details as noted in HPI ED Course Vital Signs 10/02/21 14:03 Temperature 98.5 F Pulse Rate 110 H Respiratory 18 Rate Blood Pressure 124/82 [Right] O2 Sat by Pulse 98 Oximetry ED Medical Decision Making - Lab Data Result diagrams: 10/02/21 17:55 10/02/21 17:55 Critical care attestation.: If time is entered above; I have spent that time in minutes in the direct care of this critically ill patient, excluding procedure time. ED Disposition Is pt being admited?: No Does the pt Need Aspirin: No
[2021-10-02 17:26] LABS: Bacteria,Urine 1+ /HPF (Negative); Bilirubin,Urine NEG (Negative); Blood,Urine SM (Negative); Color,Urine Yellow (Yellow); Hyaline Casts,Urine 3 /LPF; Urobilinogen,Urine < 2.0 mg/dL (<2.0); WBC,Urine < 1.0 /HPF (0.0-6.0)
[2021-10-02 18:20] LABS: Basophils # (Auto) 0.1 K/mm3 (0.0-0.1); Eosinophils # (Auto) 0.1 K/mm3 (0.0-0.4); Eosinophils % (Auto) 2.4 % (0.0-4.3); Hematocrit 36.8 % (30.3-42.9); Hemoglobin 12.2 gm/dl (10.1-14.3); Lymphocytes # (Auto) 2.7 K/mm3 (1.2-5.4); Mean Corpuscular HGB Conc 33 % (30-34); Mean Corpuscular Volume 85 fl (79-97); Monocytes # (Auto) 0.4 K/mm3 (0.0-0.8); Monocytes % (Auto) 7.1 % (0.0-7.3); Platelet Count 397 K/mm3 (140-440); Red Blood Count 4.36 M/mm3 (3.65-5.03); Red Cell Distribution Width 14.3 % (13.2-15.2)
[2021-10-02 18:24] LABS: INR 0.9 (0.87-1.13)
[2021-10-02 18:29] LABS: Albumin 4.5 g/dL (3.9-5); Calcium 9.8 mg/dL (8.4-10.2)
[2021-10-02 18:30] LABS: Alanine Aminotransferase 15 units/L (7-56); Albumin 4.5 g/dL (3.9-5)
[2021-10-02 18:34] LABS: Bilirubin,Direct < 0.2 mg/dL (0-0.2)
[2021-10-02] MEDS ORDERED: SODIUM CHLORIDE 0.9% 1000 ML 1,000 ML IV ONE (18:50)
[2021-10-02] MEDS ORDERED: METOCLOPRAMIDE 10 MG/2 ML INJ IV ONE (18:50)
[2021-10-02] MEDS ORDERED: KETOROLAC 30 MG/1 ML INJ IV ONE (19:49)
[2021-10-02 20:37] VITALS: BP 121/80
== END 2021-10-02 20:37 | disposition home or self-care (01) ==
LOC: ED 13:22
DX: R11.2 Nausea with vomiting, unspecified (principal); R10.9 Unspecified abdominal pain
CPT/HCPCS: 36415; 80053; 80076; 81001; 82150; 83690; 84703; 85025; 85610; 96361; 96374; 96375; 99283; J1885; J2765; J7030; Q0162